=== PATIENT | female | born 1985 | race Caucasian/White ===

== ENCOUNTER 2016-12-13 14:11 | Emergency (ER) | payer MEDICARE, MEDICAID ==
[2016-12-13] MEDS ORDERED: ACETAMINOPHEN 325 MG TABLET PO ONE (15:38)
--- NOTE | 2016-12-13 15:38 | ER Document Report ---
ED Medical Screen (RME) - General Stated Complaint: RIGHT FLANK PAIN,BACK PAIN Notes: patient is a 31 year old female p/w right flank pain that started yesterday and become more severe. h/o kidney stones last in july, urologist was Dr Burrell who moved. urine is dark I have greeted and performed a rapid initial assessment of this patient. A comprehensive ED assessment and evaluation of the patient, analysis of test results and completion of the medical decision making process will be conducted by additional ED providers. TRAVEL OUTSIDE OF THE [place] IN LAST 30 DAYS: No - Related Data Allergies/Adverse Reactions: morphine [Morphine] Allergy (Severe, Verified 10/13/16 21:35) Itching Sulfa (Sulfonamide Antibiotics) Allergy (Severe, Verified 10/13/16 21:35) Rash, Difficulty breathing Past Medical History - Past Medical History Cardiac Medical History: Denies: Hx Coronary Artery Disease, Hx Heart Attack, Hx Hypertension Pulmonary Medical History: Denies: Hx Asthma, Hx Bronchitis, Hx COPD, Hx Pneumonia Neurological Medical History: Reports: Hx Migraine. Denies: Hx Cerebrovascular Accident, Hx Seizures Renal/ Medical History: Reports: Hx Kidney Stones - known stones bilaterally GI Medical History: Reports: Hx Gastroesophageal Reflux Disease, Hx Ulcer Musculoskeltal Medical History: Denies Hx Arthritis Psychiatric Medical History: Reports: Hx Anxiety, Hx Depression Past Surgical History: Reports: Hx Abdominal Surgery - Intestinal, Hx Section - X 3, Hx Cholecystectomy, Hx Genitourinary Surgery - Ureteral stent March 01, 2015, [place]., Hx Hysterectomy - Immunizations Immunizations up to date: Yes Hx Diphtheria, Pertussis, Tetanus Vaccination: No
[2016-12-13 16:41] LABS: ABSOLUTE EOSINOPHILS # (AUTO) 0.1 10^3/uL (0.0-0.6); ABSOLUTE MONOCYTES (AUTO) 0.5 10^3/uL (0.1-1.4); ABSOLUTE NEUT (AUTO) 6.6 10^3/uL (1.7-8.2); BASOPHILS % (AUTO) 0.3 % (0-2); EOSINOPHILS % (AUTO) 0.6 % (0-6); HEMATOCRIT 39.2 % (36.0-47.0); HGB HCT DIFFERENCE -0.2; LYMPHOCYTES % (AUTO) 29.4 % (13-45); MEAN CORPUSCULAR HEMOGLOBIN 26.5 pg (27.0-33.4); MEAN CORPUSCULAR HGB CONC 33.2 g/dL (32.0-36.0); MEAN CORPUSCULAR VOLUME 80 fl (80-97); MONOCYTES % (AUTO) 5.2 % (3-13); RED BLOOD COUNT 4.91 10^6/uL (3.72-5.28); RED CELL DISTRIBUTION WIDTH 15.2 % (11.5-14.0); SEGMENTED NEUTROPHILS % (AUTO) 64.5 % (42-78); WHITE BLOOD COUNT 10.3 10^3/uL (4.0-10.5)
[2016-12-13 16:50] LABS: APPEARANCE,URINE CLOUDY; BILIRUBIN,URINE NEGATIVE (NEGATIVE); GLUCOSE, URINE NEGATIVE (NEGATIVE); KETONES,URINE NEGATIVE (NEGATIVE); LEUKOCYTE ESTERASE,URINE LARGE (NEGATIVE); NITRITE,URINE NEGATIVE (NEGATIVE); PROTEIN,URINE NEGATIVE (NEGATIVE); URINE SPECIFIC GRAVITY 1.011; UROBILINOGEN,URINE NEGATIVE mg/dL (<2.0)
[2016-12-13 17:02] LABS: ALANINE AMINOTRANSFERASE 40 U/L (9-52); ALBUMIN 4.1 g/dL (3.5-5.0); ALKALINE PHOSPHATASE 167 U/L (38-126); ANION GAP 12 (5-19); ASPARTATE AMINO TRANSFERASE 34 U/L (14-36); BILIRUBIN,TOTAL 0.7 mg/dL (0.2-1.3); BLOOD UREA NITROGEN 11 mg/dL (7-20); CALCIUM 9.9 mg/dL (8.4-10.2); CARBON DIOXIDE 27 mmol/L (22-30); CHLORIDE 104 mmol/L (98-107); CREATININE RESULT 1.15 mg/dL (0.52-1.25); GLUCOSE 107 mg/dL (75-110); POTASSIUM 4.9 mmol/L (3.6-5.0); SODIUM 142.5 mmol/L (137-145); TOTAL PROTEIN 8.6 g/dL (6.3-8.2)
--- NOTE | 2016-12-13 19:06 | ER Document Report ---
ED General - General Chief Complaint: Flank Pain Stated Complaint: RIGHT FLANK PAIN,BACK PAIN Mode of Arrival: Ambulatory Information source: Patient Notes: Brandon is a 31-year-old female with history of kidney stones, last was in July. She reports today with 2 day history of right flank pain described as squeezing and tight in her back. She denies fever or chills or vomiting but endorses nausea. She states her urine has been dark but denies any hola hematuria or pyuria. She has tried [id number] pain medication with no relief. She has a urologist that he recently moved and she has not had a referral to anyone new as of yet. TRAVEL OUTSIDE OF THE [place] IN LAST 30 DAYS: No - Related Data Allergies/Adverse Reactions: morphine [Morphine] Allergy (Severe, Verified 10/13/16 21:35) Itching Sulfa (Sulfonamide Antibiotics) Allergy (Severe, Verified 10/13/16 21:35) Rash, Difficulty breathing Past Medical History - Social History Smoking Status: Never Smoker Chew tobacco use (# tins/day): No Frequency of alcohol use: None Drug Abuse: None Family History: Reviewed & Not Pertinent Patient has suicidal ideation: No Patient has homicidal ideation: No - Past Medical History Cardiac Medical History: Denies: Hx Coronary Artery Disease, Hx Heart Attack, Hx Hypertension Pulmonary Medical History: Denies: Hx Asthma, Hx Bronchitis, Hx COPD, Hx Pneumonia Neurological Medical History: Reports: Hx Migraine. Denies: Hx Cerebrovascular Accident, Hx Seizures Renal/ Medical History: Reports: Hx Kidney Stones - known stones bilaterally. Denies: Hx Peritoneal Dialysis GI Medical History: Reports: Hx Gastroesophageal Reflux Disease, Hx Ulcer Musculoskeltal Medical History: Denies Hx Arthritis Psychiatric Medical History: Reports: Hx Anxiety, Hx Depression Past Surgical History: Reports: Hx Abdominal Surgery - Intestinal, Hx Section - X 3, Hx Cholecystectomy, Hx Genitourinary Surgery - Ureteral stent March 01, 2015, [place]., Hx Hysterectomy - Immunizations Immunizations up to date: Yes Hx Diphtheria, Pertussis, Tetanus Vaccination: No Review of Systems - Review of Systems Constitutional: See HPI EENT: No symptoms reported Cardiovascular: No symptoms reported Respiratory: No symptoms reported Gastrointestinal: No symptoms reported Genitourinary: See HPI Female Genitourinary: No symptoms reported Musculoskeletal: No symptoms reported Skin: No symptoms reported Hematologic/Lymphatic: No symptoms reported Neurological/Psychological: No symptoms reported Physical Exam - Vital signs Vitals: Temp Pulse BP Pulse Ox 98.0 F 97 129/94 H 97 12/13/16 15:29 12/13/16 15:29 12/13/16 15:29 12/13/16 15:29 Interpretation: Hypertensive - Notes Notes: PHYSICAL EXAM: CONSTITUTIONAL: Alert and oriented, well-appearing and in no acute distress. Appears uncomfortable but non-toxic. HENT: Normocephalic, atraumatic. Moist mucous membranes. EYES: Pupils equal round and reactive to light, EOM intact. Sclera anicteric, conjunctiva are normal. No entrapment. NECK: supple without lymphadenopathy. ROM intact. HEART: Regular rate and rhythm without murmurs. LUNGS: CTAB and equal. No wheezes, rales or rhonchi. GI: Normactive bowel sounds. Nontender, non-distended. No organomegaly. + R CVAT. BACK: nontender, no paraspinous spasm, 5+/5 strengths, DTRs 2+, SLR -. EXTREMITIES: Normal range of motion, no pitting edema. No cyanosis. Cap Refill < 3 seconds. SKIN: Warm and dry. Normal turgor. No rashes or lesions noted. Course - Re-evaluation Re-evalutation: 12/13/16 20:40 I have consulted with the supervisory physician per [facility] guidelines. Patient seen and examined. R CVAT with normal vital signs. CBC/chem panel unremarkable. UA with small hematuria, large leuk est, 178 WBC, many clumps of WBC and 3+bacteria. Will give IVF/IV pain medication and get CT of A/P w/o contrast. Reviewed imaging results which showed moderate hydronephrosis with 2mm stone at UVJ with mild dilatation just proximal to stone consistent with obstructive uropathy. 12/13/16 21:39 I consulted and discussed case with Dr. Joey Donovan, urologist on-call at [facility]. He recommended obtaining a urine catheter specimen to be sure we had a clean catch and recommended patient be discharged with follow-up outpatient next week. He recommends Cipro/Flomax and something for pain as well. Discussed with patient management and plan who verbally agrees. Discharged home in stable condition with scripts for abx/flomax/pain meds. provided follow-up information for urology outpatient. - Vital Signs Vital signs: Temp Pulse Resp BP Pulse Ox 98.0 F 97 129/94 H 97 12/13/16 15:29 12/13/16 15:29 12/13/16 15:29 12/13/16 15:29 - Laboratory Result Diagrams: 12/13/16 16:25 12/13/16 16:25 Laboratory results interpreted by me: 12/13/16 12/13/16 12/13/16 16:25 16:25 16:25 MCH 26.5 L RDW 15.2 H Est GFR (Non-Af Amer) 55 L Alkaline Phosphatase 167 H Total Protein 8.6 H Urine Blood SMALL H Ur Leukocyte Esterase LARGE H Discharge - Discharge Clinical Impression: Acute unilateral obstructive uropathy, Calculus of proximal right ureter Urinary tract infection Qualifiers: Urinary tract infection type: acute cystitis Hematuria presence: with hematuria Qualified Code(s): N30.01 - Acute cystitis with hematuria Hydronephrosis Qualifiers: Hydronephrosis type: with ureteropelvic junction obstruction Qualified Code(s) : 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 These stones are usually due to increased calcium or uric acid concentrations in your urine. Stones within the kidney itself are not painful. The pain occurs as the stone leaves the kidney to pass down the long tube, called the ureter, leading to the bladder. If the stone is small, it will usually pass by itself. Most patients can pass the stone at home. You will usually receive medications for pain, nausea or vomiting, and sometimes a medication to assist in passing the kidney stone. However, if the pain is very severe or if vomiting prevents you from taking oral pain medications, you may need to return for further treatment. Drink three or four quarts of fluids per day. You will be given pain medication (if needed) and urine strainers. Strain all your urine to see if the stone passes. If your doctor has asked you to bring the stone in for analysis, return with the stone once it has passed. Return if pain or vomiting become severe, if you develop a high fever, if you are unable to pass your urine, or if other unusual symptoms occur. TORADOL INJECTION: You have been given an injection of ketorolac tromethamine (Toradol). This is an excellent, safe drug for pain control. It also has potent antiinflammatory action. You should have significant pain relief within about one hour. Toradol is not addicting and is non-sedating. It does not interfere with driving or work. Call or return if you develop itching, hives, shortness of breath, or rash. PAIN MEDICATION INJECTION: You have received an injection of a pain medication. You should experience significant pain relief within 45 minutes. This drug is a narcotic - - it will impair your judgement, slow your reaction time and make you sleepy ( as well as relieve your pain). Narcotics also can cause nausea. You should not drive, work with machinery, or perform any task requiring mental alertness until all effects of the medication are gone -- six to eight hours. Do not take any alcohol, or sedatives, and do not take any other medication without checking with your physician. ANTINAUSEA MEDICATION: You have been given a medication to suppress nausea and vomiting. This type of medication can be given as a shot, pill, or suppository. It will usually last for many hours. Pills and shots usually last six to eight hours, suppositories last about 12 hours. For the typical illness, only one or two doses of the medication may be necessary. Mild lightheadedness may occur. This type of medicine can cause drowsiness. Do not drive or operate dangerous machinery while under its influence. Do not mix with alcohol. See your doctor at once if you have muscle spasms or tightness, or uncontrollable motions (particularly of the neck, mouth, or jaw). Persistent vomiting or severe lightheadedness should also be evaluated by the physician. ORAL NARCOTIC MEDICATION: You have been given a prescription for pain control. This medication is a narcotic. It's best taken with food, as nausea can result if taken on an empty stomach. Don't operate machinery or drive within six hours of taking this medication. Do not combine this medicine with alcohol, or with any medication which can cause sedation (such as cold tablets or sleeping pills) unless you get permission from the physician. Narcotics tend to cause constipation. If possible, drink plenty of fluids and eat a diet high in fiber and fruits. Please be aware that prescription narcotics also have the potential for abuse. People become addicted to these medications because of the general sense of wellbeing that they induce. This feeling along with a significant reduction in tension, anxiety, and aggression provides a stimulating seductive quality to these drugs. Once your pain is under control, we encourage you to discard your unused narcotics. FLOMAX (tamsulosin): Flomax is a medicine that shrinks the prostate gland. It helps relieve symptoms of benign prostatic hypertrophy, such as frequent urination, weak stream, and inadequate emptying. It has been shown to dilate the ureter (tube leading from the kidney to the bladder) and help in passing kidney stones Flomax usually causes no side effects. You may notice slight tiredness and dizziness for a few days. Some patients develop nasal congestion. Rarely, impotence can occur. If the symptoms are bothersome and don't improve with continued use, call your doctor. Contact your doctor or return if you have fainting spells, severe weakness or dizziness, shortness of breath, or rash. FOLLOW-UP CARE: If you have been referred to a physician for follow-up care, call the physician s office for an appointment as you were instructed or within the next two days. If you experience worsening or a significant change in your symptoms, notify the physician immediately or return to the Emergency Department at any time for re-evaluation. Prescriptions: Oxycodone HCl/Acetaminophen [Percocet 5-325 mg Tablet] 1 tab PO Q6HP PRN #10 tablet PRN Reason: Ciprofloxacin HCl [Cipro 500 mg Tablet] 500 mg PO BID #20 tablet Ondansetron [Zofran Odt 4 mg Tablet] 1 - 2 tab PO Q4H PRN #15 tab.rapdis PRN Reason: For Nausea/Vomiting Tamsulosin HCl [Flomax 0.4 mg Cap.sr] 0.4 mg PO DAILY #7 cap.sr.24h Forms: Elevated Blood Pressure Referrals: JOEY DONOVAN MD [NO LOCAL MD] - Follow up in 1 week (call tomorrow to schedule appointment for next week)
[2016-12-13] MEDS ORDERED: NORMAL SALINE 1000 ML 1,000 ML IV ONE (20:06)
[2016-12-13] MEDS ORDERED: KETOROLAC TROMETHAMINE INJ/PF 30 MG/1 ML SDV IV ONE (21:37)
[2016-12-13 22:03] VITALS: BP 107/53
[2016-12-13] MEDS ORDERED: HYDROCODONE/ACETAMINOPHEN 5-325 MG 6 TAB/DSPK PO PRN (22:03)
[2016-12-13 22:54] LABS: APPEARANCE,URINE CLEAR; BILIRUBIN,URINE NEGATIVE (NEGATIVE); GLUCOSE, URINE NEGATIVE (NEGATIVE); KETONES,URINE NEGATIVE (NEGATIVE); PROTEIN,URINE NEGATIVE (NEGATIVE); URINE SPECIFIC GRAVITY 1.016
[2016-12-13 22:55] LABS: LEUKOCYTE ESTERASE,URINE LARGE (NEGATIVE); NITRITE,URINE NEGATIVE (NEGATIVE); UROBILINOGEN,URINE NEGATIVE mg/dL (<2.0)
== END 2016-12-13 22:14 | disposition home or self-care (01) ==
LOC: ER 14:11
DX: N13.2 Hydronephrosis with renal and ureteral calculous obstruction (principal); N30.01 Acute cystitis with hematuria; Q62.0 Congenital hydronephrosis; Z88.5 Allergy status to narcotic agent; Z88.2 Allergy status to sulfonamides; Z98.890 Other specified postprocedural states
CPT/HCPCS: 99284; 96361; 96374; 36415; 85025; 80053; 81001; 74176; A9270 ×2; J1885; J7030

== ENCOUNTER 2017-01-03 18:32 | Emergency (ER) | payer MEDICARE, MEDICAID ==
--- NOTE | 2017-01-03 19:02 | ER Document Report ---
ED Medical Screen (RME) - General Stated Complaint: FLANK PAIN Notes: History is a 31-year-old female presents emergency Department complaining of kidney stone bilaterally, fever, abdominal pain and back pain. Patient states that she's had these symptoms since her last evaluation here but it has become more severe. Denies any nausea or vomiting. Denies any hematuria, states that she has pain on urination that it's difficult to go for one week. I have greeted and performed a rapid initial assessment of this patient. A comprehensive ED assessment and evaluation of the patient, analysis of test results and completion of the medical decision making process will be conducted by additional ED providers. TRAVEL OUTSIDE OF THE [place] IN LAST 30 DAYS: No - Related Data Allergies/Adverse Reactions: morphine [Morphine] Allergy (Severe, Verified 10/13/16 21:35) Itching Sulfa (Sulfonamide Antibiotics) Allergy (Severe, Verified 10/13/16 21:35) Rash, Difficulty breathing Past Medical History - Past Medical History Cardiac Medical History: Denies: Hx Coronary Artery Disease, Hx Heart Attack, Hx Hypertension Pulmonary Medical History: Denies: Hx Asthma, Hx Bronchitis, Hx COPD, Hx Pneumonia Neurological Medical History: Reports: Hx Migraine. Denies: Hx Cerebrovascular Accident, Hx Seizures Renal/ Medical History: Reports: Hx Kidney Stones - known stones bilaterally. Denies: Hx Peritoneal Dialysis GI Medical History: Reports: Hx Gastroesophageal Reflux Disease, Hx Ulcer Musculoskeltal Medical History: Denies Hx Arthritis Psychiatric Medical History: Reports: Hx Anxiety, Hx Depression Past Surgical History: Reports: Hx Abdominal Surgery - Intestinal, Hx Section - X 3, Hx Cholecystectomy, Hx Genitourinary Surgery - Ureteral stent March 01, 2015, [place]., Hx Hysterectomy - Immunizations Immunizations up to date: Yes Hx Diphtheria, Pertussis, Tetanus Vaccination: No Physical Exam - Vital signs Vitals: Temp Pulse Resp BP Pulse Ox 98.4 F 109 H 20 135/93 H 99 01/03/17 18:56 01/03/17 18:56 01/03/17 18:56 01/03/17 18:56 01/03/17 18:56 Course - Vital Signs Vital signs: Temp Pulse Resp BP Pulse Ox 98.4 F 109 H 20 135/93 H 99 01/03/17 18:56 01/03/17 18:56 01/03/17 18:56 01/03/17 18:56 01/03/17 18:56
[2017-01-03] MEDS ORDERED: ACETAMINOPHEN 325 MG TABLET PO ONE (19:03)
[2017-01-03 19:34] LABS: ABSOLUTE EOSINOPHILS # (AUTO) 0.1 10^3/uL (0.0-0.6); ABSOLUTE LYMPHOCYTES (AUTO) 2.4 10^3/uL (0.5-4.7); ABSOLUTE MONOCYTES (AUTO) 0.5 10^3/uL (0.1-1.4); ABSOLUTE NEUT (AUTO) 6.4 10^3/uL (1.7-8.2); BASOPHILS % (AUTO) 0.3 % (0-2); EOSINOPHILS % (AUTO) 0.6 % (0-6); HEMATOCRIT 40.3 % (36.0-47.0); HEMOGLOBIN 13.7 g/dL (12.0-15.5); HGB HCT DIFFERENCE 0.8; MEAN CORPUSCULAR HEMOGLOBIN 26.9 pg (27.0-33.4); MEAN CORPUSCULAR HGB CONC 34.1 g/dL (32.0-36.0); MEAN CORPUSCULAR VOLUME 79 fl (80-97); RED BLOOD COUNT 5.11 10^6/uL (3.72-5.28); RED CELL DISTRIBUTION WIDTH 15.2 % (11.5-14.0); SEGMENTED NEUTROPHILS % (AUTO) 68.1 % (42-78); WHITE BLOOD COUNT 9.4 10^3/uL (4.0-10.5)
[2017-01-03 19:42] LABS: APPEARANCE,URINE SLIGHTLY-CLOUDY; BILIRUBIN,URINE NEGATIVE (NEGATIVE); GLUCOSE, URINE NEGATIVE (NEGATIVE); KETONES,URINE NEGATIVE (NEGATIVE); LEUKOCYTE ESTERASE,URINE MODERATE (NEGATIVE); NITRITE,URINE NEGATIVE (NEGATIVE); PROTEIN,URINE NEGATIVE (NEGATIVE); URINE SPECIFIC GRAVITY 1.013; UROBILINOGEN,URINE NEGATIVE mg/dL (<2.0)
[2017-01-03 20:05] LABS: ALANINE AMINOTRANSFERASE 34 U/L (9-52); ALBUMIN 4.7 g/dL (3.5-5.0); ALKALINE PHOSPHATASE 157 U/L (38-126); ANION GAP 15 (5-19); ASPARTATE AMINO TRANSFERASE 23 U/L (14-36); BILIRUBIN,TOTAL 0.7 mg/dL (0.2-1.3); BLOOD UREA NITROGEN 15 mg/dL (7-20); CALCIUM 10.2 mg/dL (8.4-10.2); CARBON DIOXIDE 25 mmol/L (22-30); CHLORIDE 104 mmol/L (98-107); CREATININE RESULT 0.93 mg/dL (0.52-1.25); GLUCOSE 139 mg/dL (75-110); POTASSIUM 4.4 mmol/L (3.6-5.0); TOTAL PROTEIN 8.9 g/dL (6.3-8.2)
[2017-01-03] MEDS ORDERED: OXYCODONE HCL IR 5 MG TABLET PO ONE (20:41)
[2017-01-03] MEDS ORDERED: ONDANSETRON 4 MG TAB.RAPDIS PO ONE (20:41)
--- NOTE | 2017-01-03 20:48 | ER Document Report ---
ED GI/ - General Chief Complaint: Flank Pain Stated Complaint: FLANK PAIN Notes: Patient is a 31-year-old female that comes to the ED for chief complaint of pain in her lower abdomen and flank on both sides, she states she was evaluated a month ago and had a stone that she was passing, states she saw her urologist on Saturday and she was still having intermittent pain but was doing better, states she completed Cipro antibiotic. She states yesterday she was sweating and she states she felt "hot" once, but no fevers noted. She denies nausea or vomiting. Patient is now seeing urologist Dr. Kasper. Patient has had a hysterectomy. TRAVEL OUTSIDE OF THE [place] IN LAST 30 DAYS: No - Related Data Allergies/Adverse Reactions: morphine [Morphine] Allergy (Severe, Verified 10/13/16 21:35) Itching Sulfa (Sulfonamide Antibiotics) Allergy (Severe, Verified 10/13/16 21:35) Rash, Difficulty breathing Past Medical History - General Information source: Patient - Social History Smoking Status: Never Smoker Chew tobacco use (# tins/day): No Frequency of alcohol use: None Drug Abuse: None Lives with: Family Family History: Reviewed & Not Pertinent Patient has suicidal ideation: No Patient has homicidal ideation: No - Past Medical History Cardiac Medical History: Denies: Hx Coronary Artery Disease, Hx Heart Attack, Hx Hypertension Pulmonary Medical History: Denies: Hx Asthma, Hx Bronchitis, Hx COPD, Hx Pneumonia Neurological Medical History: Reports: Hx Migraine. Denies: Hx Cerebrovascular Accident, Hx Seizures Renal/ Medical History: Reports: Hx Kidney Stones - known stones bilaterally. Denies: Hx Peritoneal Dialysis GI Medical History: Reports: Hx Gastroesophageal Reflux Disease, Hx Ulcer Musculoskeltal Medical History: Denies Hx Arthritis Psychiatric Medical History: Reports: Hx Anxiety, Hx Depression Past Surgical History: Reports: Hx Abdominal Surgery - Intestinal, Hx Section - X 3, Hx Cholecystectomy, Hx Genitourinary Surgery - Ureteral stent March 01, 2015, [place]., Hx Hysterectomy - Immunizations Immunizations up to date: Yes Hx Diphtheria, Pertussis, Tetanus Vaccination: No Review of Systems - Review of Systems Constitutional: No symptoms reported EENT: No symptoms reported Cardiovascular: No symptoms reported Respiratory: No symptoms reported Gastrointestinal: See HPI Genitourinary: See HPI Female Genitourinary: No symptoms reported Musculoskeletal: No symptoms reported Skin: No symptoms reported Hematologic/Lymphatic: No symptoms reported Neurological/Psychological: No symptoms reported Physical Exam - Vital signs Vitals: Temp Pulse Resp BP Pulse Ox 98.4 F 109 H 20 135/93 H 99 01/03/17 18:56 01/03/17 18:56 01/03/17 18:56 01/03/17 18:56 01/03/17 18:56 Interpretation: Normal - General General appearance: Appears well, Alert In distress: None - Alert and well-appearing - HEENT Head: Normocephalic, Atraumatic Eyes: Normal Pupils: PERRL - Respiratory Respiratory status: No respiratory distress Chest status: Nontender Breath sounds: Normal Chest palpation: Normal - Cardiovascular Rhythm: Regular. No: Tachycardia - No tachycardia on my examination Heart sounds: Normal auscultation, S1 appreciated, S2 appreciated Murmur: No - Abdominal Inspection: Normal Distension: No distension Bowel sounds: Normal Tenderness: Tender - Very mild generalized mid to lower abdominal tenderness, nonspecific, no guarding Organomegaly: No organomegaly - Back Back: Normal, Nontender. No: Tender, CVA tenderness - Extremities General upper extremity: Normal inspection, Nontender, Normal color, Normal ROM , Normal temperature General lower extremity: Normal inspection, Nontender, Normal color, Normal ROM , Normal temperature, Normal weight bearing. No: Mary's sign - Neurological Neuro grossly intact: Yes Cognition: Normal Orientation: AAOx4 [place] Coma Scale Eye Opening: Spontaneous [place] Coma Scale Verbal: Oriented [place] Coma Scale Motor: Obeys Commands [place] Coma Scale Total: 15 Speech: Normal Cranial nerves: Normal Cerebellar coordination: Normal Motor strength normal: LUE, RUE, LLE, RLE Additional motor exam normals: Equal art specialist Sensory: Normal - Psychological Associated symptoms: Normal affect, Normal mood - Skin Skin Temperature: Warm Skin Moisture: Dry Skin Color: Normal Course - Re-evaluation Re-evalutation: Patient with very mild generalized abdominal tenderness on exam, no guarding, no CVA tenderness on my examination, no fever. No leukocytosis, chemistry unremarkable. Urinalysis shows moderate leukocyte esterase, white blood cells, 3+ bacteria. Urine culture sent. Patient given antibiotics, symptom management. Ultrasound with no acute abnormalities, no hydronephrosis. No evidence of obstructive pathology. Patient is very well-appearing. Discussed with Dr. Mcgregor per [facility] guidelines. Patient states that she was supposed to follow- up for an ultrasound tomorrow with her urologist, has result patient was given her labs and her ultrasound, advised to call her urologist in the morning, instructed to return if she develops fever, vomiting, or worsening symptoms. Patient states satisfaction and agreement with plan. - Vital Signs Vital signs: Temp Pulse Resp BP Pulse Ox 98.6 F 84 16 129/71 H 96 01/03/17 23:14 01/03/17 23:14 01/03/17 23:14 01/03/17 23:14 01/03/17 23:14 - Laboratory Result Diagrams: 01/03/17 19:10 01/03/17 19:10 Laboratory results interpreted by me: 01/03/17 01/03/17 01/03/17 19:10 19:10 19:15 MCV 79 L MCH 26.9 L RDW 15.2 H Glucose 139 H Alkaline Phosphatase 157 H Total Protein 8.9 H Ur Leukocyte Esterase MODERATE H Discharge - Discharge Clinical Impression: Lower abdominal pain Condition: Stable Disposition: HOME, SELF-CARE Additional Instructions: The ultrasound is normal, blood work does not show any concerning findings, the urine is consistent with an infection. Have a culture of your urine growing in our lab, please take the antibiotic as directed, follow up tomorrow with your urologist and breathing the labs and ultrasound report to his office on your appointment. Return to the emergency department for any concerning or worsening symptoms including vomiting, severe pain, fever, etc. Prescriptions: Cephalexin Monohydrate [Keflex 500 mg Capsule] 500 mg PO BID #14 capsule
[2017-01-03] MEDS ORDERED: HYDROCODONE/ACETAMINOPHEN 5-325 MG 6 TAB/DSPK PO PRN (22:47)
[2017-01-03] MEDS ORDERED: CEPHALEXIN 500 MG CAPSULE PO ONE (22:47)
[2017-01-03 23:14] VITALS: BP 129/71
== END 2017-01-03 23:14 | disposition home or self-care (01) ==
LOC: ER 18:32
DX: R10.30 Lower abdominal pain, unspecified (principal)
CPT/HCPCS: 99284; 36415; 87086; 85025; 87088; 80053; 81001; 87186; 76770; A9270 ×4; S0119

== ENCOUNTER 2017-01-10 00:12 | Emergency (ER) | payer MEDICARE, MEDICAID ==
[2017-01-10 01:28] LABS: ALANINE AMINOTRANSFERASE 62 U/L (9-52); ALBUMIN 4.4 g/dL (3.5-5.0); ALKALINE PHOSPHATASE 183 U/L (38-126); ANION GAP 18 (5-19); ASPARTATE AMINO TRANSFERASE 89 U/L (14-36); BLOOD UREA NITROGEN 15 mg/dL (7-20); CALCIUM 9.8 mg/dL (8.4-10.2); CARBON DIOXIDE 19 mmol/L (22-30); CHLORIDE 107 mmol/L (98-107); CREATININE RESULT 1.03 mg/dL (0.52-1.25); GLUCOSE 141 mg/dL (75-110)
[2017-01-10 02:59] LABS: HEMATOCRIT 41.8 % (36.0-47.0); HGB HCT DIFFERENCE 0.2; MEAN CORPUSCULAR HEMOGLOBIN 26.9 pg (27.0-33.4); MEAN CORPUSCULAR HGB CONC 33.5 g/dL (32.0-36.0); MEAN CORPUSCULAR VOLUME 80 fl (80-97); WHITE BLOOD COUNT 17.1 10^3/uL (4.0-10.5)
[2017-01-10 03:27] LABS: BAND NEUTROPHILS % (MANUAL) 7 % (3-5); BASOPHILS % (MANUAL) 0 % (0-2); EOSINOPHILS % (MANUAL) 0 % (0-6); LYMPHOCYTES % (MANUAL) 4 % (13-45); TOTAL CELLS COUNTED 100
[2017-01-10 03:28] LABS: ANISOCYTOSIS SLIGHT; HYPOCHROMASIA SLIGHT; OVALOCYTES SLIGHT; POIKILOCYTOSIS SLIGHT; SCHISTOCYTES SLIGHT; TOXIC GRANULATION SLIGHT
[2017-01-10] MEDS ORDERED: NORMAL SALINE 1000 ML 1,000 ML IV ONE (04:11)
[2017-01-10] MEDS ORDERED: FAMOTIDINE 20 MG TABLET PO ONE (04:16)
[2017-01-10] MEDS ORDERED: METOCLOPRAMIDE HCL INJ/PF 10 MG/2 ML SDV IV ONE (04:16)
[2017-01-10] MEDS ORDERED: SUCRALFATE 1 GM TABLET PO ONE (04:18)
[2017-01-10] MEDS ORDERED: LORAZEPAM INJ 2 MG/1 ML VIAL IV ONE (05:05)
[2017-01-10 05:39] LABS: APPEARANCE,URINE CLOUDY; BILIRUBIN,URINE SMALL (NEGATIVE); CALCIUM OXALATE CRYSTALS,URINE TOO NUMEROUS TO CNT /HPF; GLUCOSE, URINE NEGATIVE (NEGATIVE); KETONES,URINE TRACE mg/dL (NEGATIVE); LEUKOCYTE ESTERASE,URINE SMALL (NEGATIVE); NITRITE,URINE NEGATIVE (NEGATIVE); PROTEIN,URINE 30 mg/dL (NEGATIVE); URINE SPECIFIC GRAVITY 1.036
[2017-01-10] MEDS ORDERED: AMPICILLIN SOD INJ 1 GM VIAL IV ONE (05:56)
--- NOTE | 2017-01-10 06:10 | ER Document Report ---
ED General - General Chief Complaint: Nausea/Vomiting/Diarrhea Stated Complaint: VOMITING Time seen by provider: 03:28 Mode of Arrival: Ambulatory Information source: Patient TRAVEL OUTSIDE OF THE [place] IN LAST 30 DAYS: No - HPI Notes: Patient presents with report of vomiting and diarrhea which started yesterday evening associated with upper abdominal pain that radiates into the lower chest. No hematemesis or bright red blood per rectum. The patient recently was diagnosed with a UTI grew enterococcus that was responsive to ampicillin and penicillin, but the patient was placed upon Keflex. Patient denies any back pain. She does report her urine is dark. - Related Data Allergies/Adverse Reactions: morphine [Morphine] Allergy (Severe, Verified 10/13/16 21:35) Itching Sulfa (Sulfonamide Antibiotics) Allergy (Severe, Verified 10/13/16 21:35) Rash, Difficulty breathing Past Medical History - Social History Smoking Status: Never Smoker Family History: Reviewed & Not Pertinent Patient has suicidal ideation: No Patient has homicidal ideation: No - Past Medical History Cardiac Medical History: Denies: Hx Coronary Artery Disease, Hx Heart Attack, Hx Hypertension Pulmonary Medical History: Denies: Hx Asthma, Hx Bronchitis, Hx COPD, Hx Pneumonia Neurological Medical History: Reports: Hx Migraine. Denies: Hx Cerebrovascular Accident, Hx Seizures Renal/ Medical History: Reports: Hx Kidney Stones - known stones bilaterally. Denies: Hx Peritoneal Dialysis GI Medical History: Reports: Hx Gastroesophageal Reflux Disease, Hx Ulcer Musculoskeltal Medical History: Denies Hx Arthritis Psychiatric Medical History: Reports: Hx Anxiety, Hx Depression Past Surgical History: Reports: Hx Abdominal Surgery - Intestinal, Hx Section - X 3, Hx Cholecystectomy, Hx Genitourinary Surgery - Ureteral stent March 01, 2015, [place]., Hx Hysterectomy - Immunizations Immunizations up to date: Yes Hx Diphtheria, Pertussis, Tetanus Vaccination: No Review of Systems - Review of Systems Notes: REVIEW OF SYSTEMS: CONSTITUTIONAL : Denies fever, chills, or sweats. Denies recent illness. EENT: Denies eye, ear, throat, or mouth pain or symptoms. Denies nasal or sinus congestion or discharge. Denies throat, tongue, or mouth swelling or difficulty swallowing. CARDIOVASCULAR: Denies palpitations or racing or irregular heart beat. Denies ankle edema. RESPIRATORY: Denies cough, cold, or chest congestion. Denies shortness of breath, difficulty breathing, or wheezing. GASTROINTESTINAL: Denies blood in vomitus, stools, or per rectum. Denies black, tarry stools. Denies constipation. GENITOURINARY: Denies difficulty urinating, painful urination, burning, frequency, blood in urine, or discharge. FEMALE GENITOURINARY: Denies vaginal bleeding, heavy or abnormal periods, irregular periods. Denies vaginal discharge or odor. MUSCULOSKELETAL: Denies back or neck pain or stiffness. Denies joint pain or swelling. SKIN: Denies rash, lesions or sores. HEMATOLOGIC : Denies easy bruising or bleeding. LYMPHATIC: Denies swollen, enlarged glands. NEUROLOGICAL: Denies confusion or altered mental status. Denies passing out or loss of consciousness. Mildly dizzy and lightheaded. Denies headache. Denies paralysis or loss of use of either side. Denies problems with gait or speech. Denies sensory loss, numbness, or tingling. Denies seizures. PSYCHIATRIC: Denies anxiety or stress. Denies depression, suicidal ideation, or homicidal ideation. ALL OTHER SYSTEMS REVIEWED AND NEGATIVE. Dictation was performed using [employer] voice recognition software Physical Exam - Vital signs Vitals: Temp Pulse BP Pulse Ox 97.3 F 126 H 114/69 98 01/10/17 00:28 01/10/17 00:28 01/10/17 00:28 01/10/17 00:28 - Notes Notes: PHYSICAL EXAMINATION: GENERAL: Well-appearing, well-nourished and in no acute distress. HEAD: Atraumatic, normocephalic. EYES: Pupils equal round and reactive to light, extraocular movements intact, conjunctiva are normal. ENT: Nares patent, oropharynx clear without exudates. Dry mucous membranes NECK: Normal range of motion, supple without lymphadenopathy LUNGS: Breath sounds clear to auscultation bilaterally and equal. No wheezes rales or rhonchi. HEART: Regular rate and rhythm without murmurs ABDOMEN: Tenderness in the midepigastric region. No hepatosplenomegaly. No guarding, no rebound. No masses appreciated. Female : deferred Musculoskeletal: Normal range of motion, no pitting or edema. No cyanosis. NEUROLOGICAL: Cranial nerves grossly intact. Normal speech, normal gait. Normal sensory, motor exams PSYCH: Normal mood, normal affect. SKIN: Warm, Dry, normal turgor, no rashes or lesions noted. Course - Re-evaluation Re-evalutation: 01/10/17 06:32 Patient was given medications for nausea and acid blockers and Ativan with 2 L normal saline bolus. On repeat exam patient had no abdominal pain and denied any chest pain and stated she felt stable for discharge. Patient tolerated by mouth fluids without difficulty. She denied further nausea. No evidence for bowel obstruction or perforated viscus or pancreatitis or hepatitis or electrolyte imbalance or anemia. Patient was given ampicillin IV for UTI, and a repeat culture was obtained. Patient requested discharge home and she was feeling better. - Vital Signs Vital signs: Temp Pulse Resp BP Pulse Ox 97.3 F 114 H 91/55 L 100 01/10/17 00:28 01/10/17 01:03 01/10/17 01:03 01/10/17 01:03 - Laboratory Result Diagrams: 01/10/17 02:30 01/10/17 01:01 Laboratory results interpreted by me: 01/10/17 01/10/17 01/10/17 01:01 02:30 04:05 WBC 17.1 H MCH 26.9 L RDW 15.0 H Seg Neuts % (Manual) 81 H Band Neutrophils % 7 H Lymphocytes % (Manual) 4 L Abs Neuts (Manual) 15.0 H Carbon Dioxide 19 L Glucose 141 H AST 89 H ALT 62 H Alkaline Phosphatase 183 H Total Protein 9.0 H Urine Protein 30 H Urine Ketones TRACE H Urine Bilirubin SMALL H Urine Urobilinogen 4.0 H Ur Leukocyte Esterase SMALL H Discharge - Discharge Clinical Impression: Diarrhea Urinary tract infection Qualifiers: Urinary tract infection type: acute cystitis Hematuria presence: with hematuria Qualified Code(s): N30.01 - Acute cystitis with hematuria Vomiting Qualifiers: Vomiting type: unspecified Vomiting Intractability: non-intractable Nausea presence: with nausea Qualified Code(s): R11.2 - Nausea with vomiting, unspecified Abdominal pain Qualifiers: Abdominal location: unspecified location Qualified Code(s): R10.9 - Unspecified abdominal pain Condition: Stable Disposition: HOME, SELF-CARE Instructions: Abdominal Pain ([facility]), Antinausea Medication ([facility]), Diarrhea, Nonspecific ([facility]), Intravenous (IV) Fluids ([facility]), Urinary Tract Infection ([facility]) Prescriptions: Lorazepam [Ativan 1 mg Tablet] 1 mg PO Q8HP PRN #20 tablet PRN Reason: Ondansetron [Zofran Odt 4 mg Tablet] 1 tab PO Q8HP PRN #15 tab.rapdis PRN Reason: For Nausea/Vomiting Amoxicillin 500 mg PO QIDWA #30 capsule Ranitidine HCl 150 mg PO BID #60 tablet
[2017-01-10 07:04] VITALS: BP 101/69
== END 2017-01-10 07:04 | disposition home or self-care (01) ==
LOC: ER 00:12
DX: N30.01 Acute cystitis with hematuria (principal); R19.7 Diarrhea, unspecified; R11.2 Nausea with vomiting, unspecified; R10.10 Upper abdominal pain, unspecified; Z88.6 Allergy status to analgesic agent; Z88.2 Allergy status to sulfonamides; Z87.442 Personal history of urinary calculi; Z90.49 Acquired absence of other specified parts of digestive tract; Z90.710 Acquired absence of both cervix and uterus
CPT/HCPCS: 99283; 96374; 96375; 36415; 87086; 83690; 85025; 87088; 80053; 81001; 87186; 74022; J0290; A9270 ×2; J2765; J2060

== ENCOUNTER 2017-02-09 16:19 | Emergency (ER) | payer MEDICARE, MEDICAID ==
--- NOTE | 2017-02-09 16:31 | ER Document Report ---
ED General - General Information source: Patient TRAVEL OUTSIDE OF THE [place] IN LAST 30 DAYS: No - HPI Onset: This morning Onset/Duration: Sudden Associated symptoms: Nausea Similar symptoms previously: Yes <SAMANTHA HUGO - Last Filed: 02/09/17 20:02> <KAUR CURRY - Last Filed: 02/09/17 23:26> - General Stated Complaint: BACK PAIN Notes: Patient is a 31-year-old female that presents to the emergency department today with complaints of right upper quadrant abdominal pain beginning this morning around 1100 after breakfast. Patient had a cholecystectomy in 2003. Patient states the pain radiates to her back and she describes colicky pain, stating it comes and goes every 5 minutes. Patient states her pain is relieved with placing a hot pack over the Patient states she has been nauseated but denies any vomiting, diarrhea, fevers, cough, or urinary symptoms. (SAMANTHA HUGO) - Related Data Allergies/Adverse Reactions: morphine [Morphine] Allergy (Severe, Verified 10/13/16 21:35) Itching Sulfa (Sulfonamide Antibiotics) Allergy (Severe, Verified 10/13/16 21:35) Rash, Difficulty breathing Past Medical History - General Information source: Patient, [facility] Records - Social History Smoking Status: Never Smoker Cigarette use (# per day): No Frequency of alcohol use: None Drug Abuse: None Lives with: Family Family History: Reviewed & Not Pertinent Neurological Medical History: Reports: Hx Migraine Renal/ Medical History: Reports: Hx Kidney Stones - known stones bilaterally GI Medical History: Reports: Hx Gastroesophageal Reflux Disease, Hx Ulcer Psychiatric Medical History: Reports: Hx Anxiety, Hx Depression Past Surgical History: Reports: Hx Abdominal Surgery - Intestinal, Hx Section - X 3, Hx Cholecystectomy, Hx Genitourinary Surgery - Ureteral stent March 01, 2015, [place]., Hx Hysterectomy - Immunizations Immunizations up to date: Yes Hx Diphtheria, Pertussis, Tetanus Vaccination: No <SAMANTHA HUGO - Last Filed: 02/09/17 20:02> Review of Systems - Review of Systems Constitutional: denies: Fever EENT: No symptoms reported Cardiovascular: No symptoms reported Respiratory: denies: Cough Gastrointestinal: See HPI, Abdominal pain - RUQ, Nausea. denies: Diarrhea, Vomiting Genitourinary: denies: Dysuria Female Genitourinary: No symptoms reported Musculoskeletal: No symptoms reported Skin: No symptoms reported Hematologic/Lymphatic: No symptoms reported Neurological/Psychological: No symptoms reported -: Yes All other systems reviewed and negative <SAMANTHA HUGO - Last Filed: 02/09/17 20:02> Physical Exam - Vital signs Interpretation: Tachycardic - General General appearance: Other - unconfortable appearing In distress: None - Respiratory Respiratory status: No respiratory distress Chest status: Nontender Breath sounds: Normal - Cardiovascular Rhythm: Regular - Abdominal Inspection: Normal Tenderness: Tender - mild RUQ TTP - Back Back: CVA tenderness - R - Extremities General upper extremity: Normal inspection, Normal ROM, Normal strength General lower extremity: Normal inspection, Normal ROM, Normal strength - Neurological Neuro grossly intact: Yes Cognition: Normal Orientation: AAOx4 [place] Coma Scale Eye Opening: Spontaneous Meri Coma Scale Verbal: Oriented [place] Coma Scale Motor: Obeys Commands Meri Coma Scale Total: 15 Speech: Normal Cranial nerves: Normal Cerebellar coordination: Normal <KAUR CURRY - Last Filed: 02/09/17 23:26> - Vital signs Vitals: Resp BP Pulse Ox 23 H 115/82 98 02/09/17 16:35 02/09/17 16:35 02/09/17 16:35 Course - Laboratory Result Diagrams: 02/09/17 16:36 02/09/17 16:36 <SAMANTHA HUGO - Last Filed: 02/09/17 20:02> - Laboratory Result Diagrams: 02/09/17 16:36 02/09/17 16:36 <KAUR CURRY - Last Filed: 02/09/17 23:26> - Re-evaluation Re-evalutation: 02/09/17 19:49 Patient's symptoms consistent with UTI/pyelonephritis. Will cultures reviewed and has been responsive to penicillin the past. Patient will be given antibiotics and discharged home with Augmentin. Patient feels better at this time and agrees with this plan. Dates that she would like something for anxiety at home. She'll be given Vistaril. Follow-up with PMD. Return if any worsening or concerning symptoms. (KAUR CURRY) - Vital Signs Vital signs: Temp Pulse Resp BP Pulse Ox 97.8 F 117 H 16 126/77 H 95 02/09/17 20:43 02/09/17 20:43 02/09/17 20:43 02/09/17 20:43 02/09/17 20:43 - Laboratory Laboratory results interpreted by me: 02/09/17 02/09/17 02/09/17 16:36 16:36 16:36 WBC 13.1 H MCV 79 L RDW 15.1 H Absolute Neutrophils 9.9 H Glucose 127 H Direct Bilirubin 0.5 H AST 37 H Alkaline Phosphatase 186 H Total Protein 9.1 H Ur Leukocyte Esterase 02/09/17 16:45 WBC MCV RDW Absolute Neutrophils Glucose Direct Bilirubin AST Alkaline Phosphatase Total Protein Ur Leukocyte Esterase MODERATE H Discharge <SAMANTHA HUGO - Last Filed: 02/09/17 20:02> <KAUR CURRY - Last Filed: 02/09/17 23:26> - Discharge Clinical Impression: Urinary tract infection Qualifiers: Urinary tract infection type: acute cystitis Hematuria presence: with hematuria Qualified Code(s): N30.01 - Acute cystitis with hematuria Condition: Stable Disposition: HOME, SELF-CARE Instructions: Urinary Tract Infection ([facility]) Prescriptions: Amox Tr/Potassium Clavulanate [Augmentin 875-125 mg Tablet] 1 tab PO BID #20 tablet Hydroxyzine Pamoate [Vistaril 25 mg Capsule] 25 mg PO BIDP PRN #14 capsule PRN Reason: Scribe Attestation: 02/09/17 23:25 I personally performed the services described in the documentation, reviewed and edited the documentation which was dictated to the scribe in my presence, and it accurately records my words and actions. (KAUR CURRY) Scribe Documentation - Scribe Written by Scribe:: Little Vazquez, 02/09/2017 1737 acting as scribe for :: [place] <SAMANTHA HUGO - Last Filed: 02/09/17 20:02>
[2017-02-09 16:58] LABS: ABSOLUTE BASOPHILS # (AUTO) 0.1 10^3/uL (0.0-0.2); ABSOLUTE EOSINOPHILS # (AUTO) 0.1 10^3/uL (0.0-0.6); ABSOLUTE LYMPHOCYTES (AUTO) 2.4 10^3/uL (0.5-4.7); ABSOLUTE MONOCYTES (AUTO) 0.7 10^3/uL (0.1-1.4); ABSOLUTE NEUT (AUTO) 9.9 10^3/uL (1.7-8.2); BASOPHILS % (AUTO) 0.6 % (0-2); EOSINOPHILS % (AUTO) 0.5 % (0-6); HEMATOCRIT 36.3 % (36.0-47.0); HEMOGLOBIN 12.5 g/dL (12.0-15.5); HGB HCT DIFFERENCE 1.2; LYMPHOCYTES % (AUTO) 18.4 % (13-45); MEAN CORPUSCULAR HEMOGLOBIN 27.1 pg (27.0-33.4); MEAN CORPUSCULAR HGB CONC 34.4 g/dL (32.0-36.0); MEAN CORPUSCULAR VOLUME 79 fl (80-97); RED BLOOD COUNT 4.61 10^6/uL (3.72-5.28); RED CELL DISTRIBUTION WIDTH 15.1 % (11.5-14.0); SEGMENTED NEUTROPHILS % (AUTO) 75.5 % (42-78); WHITE BLOOD COUNT 13.1 10^3/uL (4.0-10.5)
[2017-02-09] MEDS ORDERED: NORMAL SALINE 1000 ML 1,000 ML IV ONE (17:11)
[2017-02-09 17:13] LABS: ANION GAP 15 (5-19); BLOOD UREA NITROGEN 10 mg/dL (7-20); CALCIUM 9.7 mg/dL (8.4-10.2); CARBON DIOXIDE 27 mmol/L (22-30); CHLORIDE 103 mmol/L (98-107); CREATININE RESULT 0.89 mg/dL (0.52-1.25); GLUCOSE 127 mg/dL (75-110); POTASSIUM 3.7 mmol/L (3.6-5.0); SODIUM 144.6 mmol/L (137-145)
[2017-02-09 17:16] LABS: APPEARANCE,URINE SLIGHTLY-CLOUDY; BILIRUBIN,URINE NEGATIVE (NEGATIVE); GLUCOSE, URINE NEGATIVE (NEGATIVE); KETONES,URINE NEGATIVE (NEGATIVE); LEUKOCYTE ESTERASE,URINE MODERATE (NEGATIVE); NITRITE,URINE NEGATIVE (NEGATIVE); PROTEIN,URINE NEGATIVE (NEGATIVE); UROBILINOGEN,URINE NEGATIVE mg/dL (<2.0)
[2017-02-09] MEDS ORDERED: CEFTRIAXONE 1 GM/D5W RTU 50 ML IV ONE (17:28)
[2017-02-09 17:35] LABS: ALANINE AMINOTRANSFERASE 38 U/L (9-52); ALBUMIN 4.6 g/dL (3.5-5.0); ALKALINE PHOSPHATASE 186 U/L (38-126); ASPARTATE AMINO TRANSFERASE 37 U/L (14-36); BILIRUBIN,DIRECT 0.5 mg/dL (0.0-0.4); BILIRUBIN,TOTAL 1.1 mg/dL (0.2-1.3); LIPASE 73.9 U/L (23-300); TOTAL PROTEIN 9.1 g/dL (6.3-8.2)
[2017-02-09] MEDS ORDERED: METOCLOPRAMIDE HCL INJ/PF 10 MG/2 ML SDV IV ONE (17:41)
[2017-02-09] MEDS ORDERED: DICYCLOMINE HCL INJ 20 MG/2 ML AMPULE IM ONE (17:45)
[2017-02-09] MEDS ORDERED: AMPICILLIN SOD INJ 1 GM VIAL IV ONE (17:47)
[2017-02-09] MEDS ORDERED: LORAZEPAM 0.5 MG TABLET PO ONE (19:11)
[2017-02-09 22:35] VITALS: BP 126/77
== END 2017-02-09 20:43 | disposition home or self-care (01) ==
LOC: ER 16:19
DX: N30.01 Acute cystitis with hematuria (principal); M54.9 Dorsalgia, unspecified; R11.0 Nausea
CPT/HCPCS: 99284; 96372; 96375; 96365; 96367; 36415; 87040; 87086; 84702; 83690; 85025; 80076; 80048; 81001; J0290; J0500; J2765; J7030; J0696; A9270

== ENCOUNTER 2017-03-11 20:30 | Emergency (ER) | payer MEDICARE, MEDICAID ==
[2017-03-11] MEDS ORDERED: NORMAL SALINE 1000 ML 1,000 ML IV ONE (22:32)
--- NOTE | 2017-03-11 22:33 | ER Document Report ---
ED General - General Mode of Arrival: Ambulatory Information source: Patient TRAVEL OUTSIDE OF THE [place] IN LAST 30 DAYS: No - HPI Onset: This morning - Refer to HPI notes Quality of pain: Burning Associated symptoms: Fever, Vomiting Similar symptoms previously: Yes Recently seen / treated by doctor: No <JAN BARNETT - Last Filed: 03/12/17 02:39> <MADINAJULESLYDIA - Last Filed: 03/12/17 06:08> - General Chief Complaint: L flank pain, fever, dysuria Stated Complaint: BACK PAIN Time Seen by Provider: 03/11/17 22:30 Notes: Patient is a 31 year old female presenting to the emergency department for left flank pain and dysuria. Patient states her symptoms were onset this morning. Patient states that she has some pain and burning with urination along with some vomiting and fevers. Patient also complains of some tachycardia. Patient denies any diarrhea. Patient states she has a history of kidney stones and UTIs. Patient is allergic to sulfa drugs and morphine. (JAN BARNETT) - Related Data Allergies/Adverse Reactions: morphine [Morphine] Allergy (Severe, Verified 10/13/16 21:35) Itching Sulfa (Sulfonamide Antibiotics) Allergy (Severe, Verified 10/13/16 21:35) Rash, Difficulty breathing Past Medical History - General Information source: Patient - Social History Smoking Status: Never Smoker Cigarette use (# per day): No Chew tobacco use (# tins/day): No Frequency of alcohol use: None Drug Abuse: None Family History: None Patient has suicidal ideation: No Patient has homicidal ideation: No Neurological Medical History: Reports: Hx Migraine Renal/ Medical History: Reports: Hx Kidney Stones - known stones bilaterally GI Medical History: Reports: Hx Gastroesophageal Reflux Disease, Hx Ulcer Psychiatric Medical History: Reports: Hx Anxiety, Hx Depression Past Surgical History: Reports: Hx Abdominal Surgery - Intestinal, Hx Section - X 3, Hx Cholecystectomy, Hx Genitourinary Surgery - Ureteral stent March 01, 2015, [place]., Hx Hysterectomy - Immunizations Immunizations up to date: Yes Hx Diphtheria, Pertussis, Tetanus Vaccination: No <JAN BARNETT - Last Filed: 03/12/17 02:39> Review of Systems - Review of Systems Constitutional: See HPI, Fever EENT: No symptoms reported Cardiovascular: No symptoms reported Respiratory: No symptoms reported Gastrointestinal: See HPI, Vomiting Genitourinary: See HPI, Burning, Dysuria, Flank pain Female Genitourinary: No symptoms reported Musculoskeletal: No symptoms reported Skin: No symptoms reported Hematologic/Lymphatic: No symptoms reported Neurological/Psychological: No symptoms reported -: Yes All other systems reviewed and negative <JAN BARNETT - Last Filed: 03/12/17 02:39> Physical Exam <JAN BARNETT - Last Filed: 03/12/17 02:39> <LYDIA QUACH - Last Filed: 03/12/17 06:08> - Vital signs Vitals: Temp 98.5 F 03/11/17 22:20 - Notes Notes: GENERAL: Alert, interacts well. No acute distress. HEAD: Normocephalic, atraumatic. EYES: Pupils equal, round, and reactive to light. Extraocular movements intact. ENT: Oral mucosa moist, tongue midline. NECK: Full range of motion. Supple. Trachea midline. LUNGS: Clear to auscultation bilaterally, no wheezes, rales, or rhonchi. No respiratory distress. HEART: Mild tachycardia. Regular rhythm. No murmurs, gallops, or rubs. ABDOMEN: Soft, non-tender. Non-distended. Bowel sounds present in all 4 quadrants. BACK: No CVA tenderness to percussion EXTREMITIES: Moves all 4 extremities spontaneously. No edema, no cyanosis. NEUROLOGICAL: Alert and oriented x3. Hard of hearing, speech consistent with deafness. PSYCH: Normal affect, normal mood. SKIN: Warm, dry, normal turgor. No rashes or lesions noted. (JAN BARNETT) Course - Laboratory Result Diagrams: 03/11/17 22:56 03/11/17 22:56 - Consults Dr. Brand Time consulted: 01:25 [facility] Time consulted: 01:37 <JAN BARNETT - Last Filed: 03/12/17 02:39> - Laboratory Result Diagrams: 03/11/17 22:56 03/11/17 22:56 <LYDIA QUACH - Last Filed: 03/12/17 06:08> - Re-evaluation Re-evalutation: 03/12/17 02:38 CBC shows significant leukocytosis at 22.9, CO2 slightly low, total and direct bilirubin slightly elevated but no clinical or historical evidence of biliary pathology. UA shows blood, leukocyte esterase and >182 WBCs, but no nitrites. urine and blood cultures are pending. CT scan shows left distal ureteral stone 4 mm with mild to moderate hydronephrosis and zen-nephric stranding. Patient was given fluids and rocephin, no evidence of sepsis currently. Pain unchanged with toradol, declines furhter pain medication. Dr. Brand declines to admit this patient as we have no urologist watermelon inspector. Dr. Donovan and Dr. Rodarte consulted and accept patient to [facility]. 03/12/17 05:53 03/12/17 06:07 Transport is at bedside, patient requesting pain medication, patient will be given a dose of Dilaudid with Benadryl for the itching. Previously patient's vital signs at been recorded as hypotensive however when the blood pressure cuff was readjusted her blood pressure normalized without any other intervention. Vital signs remained normal at this time, no evidence of septic shock at this time. I did personally recheck the patient and Patient is stable for transport. (LYDIA QUACH) - Vital Signs Vital signs: Temp Pulse Resp BP Pulse Ox 98.5 F 14 106/75 98 03/11/17 22:20 03/12/17 05:31 03/12/17 05:31 03/12/17 05:31 - Laboratory Laboratory results interpreted by ia: 03/11/17 03/11/17 03/11/17 22:24 22:56 22:56 WBC 22.9 H RDW 14.9 H Band Neutrophils % 2 L Lymphocytes % (Manual) 10 L Abs Neuts (Manual) 18.3 H Abs Monocytes (Manual) 2.3 H Carbon Dioxide 20 L Est GFR (Non-Af Amer) 53 L Glucose 133 H Total Bilirubin 2.3 H Direct Bilirubin 0.7 H Alkaline Phosphatase 154 H Total Protein 8.3 H Urine Protein 100 H Urine Blood SMALL H Ur Leukocyte Esterase LARGE H - Consults Dr. Brand Reason for consultation: 03/12/17 01:[address] Brand to discuss patient; he recommends that the patient should be transferred to a facility with urology. (JAN BARNETT) [facility] Transfer [place] Reason for consultation: 03/12/17 01:37 Contacted [facility] for possible transfer, they will call back. 03/12/17 01:[address] Joey Donovan, Urology; he is happy to accept the patient but he will have the hospitalist call to formally accept the patient. 03/12/17 01:[address] Wally Felipe, Hospitalist, who accepts the patient for admission. (JAN BARNETT) 03/12/17 02:[address] Wally Dobbins accepts the patient, not mariangel Frostibmarbella mis- stated name. (LYDIA QUACH) Discharge <JAN BARNETT - Last Filed: 03/12/17 02:39> <LYDIA QUACH - Last Filed: 03/12/17 06:08> - Discharge Clinical Impression: Pyelonephritis, Ureteral calculus, left, Hydronephrosis due to obstruction of ureter Condition: Fair Disposition: [facility] Scribe Attestation: 03/12/17 02:39 I personally performed the services described in the documentation, reviewed and edited the documentation which was dictated to the scribe in my presence, and it accurately records my words and actions. (LYDIA QUACH) Scribe Documentation - Scribe Written by Little:: Little Boothe, 03/12/17 12:16 acting as scribe for :: Dianna <JAN BARNETT - Last Filed: 03/12/17 02:39>
[2017-03-11] MEDS ORDERED: KETOROLAC TROMETHAMINE INJ/PF 30 MG/1 ML SDV IV ONE (22:45)
[2017-03-11] MEDS ORDERED: ONDANSETRON HCL INJ/PF 4 MG/2 ML SDV IV ONE (22:45)
[2017-03-11] MEDS ORDERED: ACETAMINOPHEN 325 MG TABLET PO ONE (22:45)
[2017-03-11 22:48] LABS: APPEARANCE,URINE TURBID; BILIRUBIN,URINE NEGATIVE (NEGATIVE); GLUCOSE, URINE NEGATIVE (NEGATIVE); KETONES,URINE NEGATIVE (NEGATIVE); LEUKOCYTE ESTERASE,URINE LARGE (NEGATIVE); NITRITE,URINE NEGATIVE (NEGATIVE); PROTEIN,URINE 100 mg/dL (NEGATIVE); URINE SPECIFIC GRAVITY 1.014; UROBILINOGEN,URINE NEGATIVE mg/dL (<2.0)
[2017-03-11 23:24] LABS: HEMATOCRIT 38.2 % (36.0-47.0); HEMOGLOBIN 13.1 g/dL (12.0-15.5); HGB HCT DIFFERENCE 1.1; MEAN CORPUSCULAR HEMOGLOBIN 27.4 pg (27.0-33.4); MEAN CORPUSCULAR HGB CONC 34.4 g/dL (32.0-36.0); MEAN CORPUSCULAR VOLUME 80 fl (80-97); RED CELL DISTRIBUTION WIDTH 14.9 % (11.5-14.0); WHITE BLOOD COUNT 22.9 10^3/uL (4.0-10.5)
[2017-03-11 23:26] LABS: ALANINE AMINOTRANSFERASE 37 U/L (9-52); ALBUMIN 4.3 g/dL (3.5-5.0); ALKALINE PHOSPHATASE 154 U/L (38-126); ANION GAP 16 (5-19); ASPARTATE AMINO TRANSFERASE 23 U/L (14-36); BILIRUBIN,DIRECT 0.7 mg/dL (0.0-0.4); BILIRUBIN,TOTAL 2.3 mg/dL (0.2-1.3); BLOOD UREA NITROGEN 16 mg/dL (7-20); CALCIUM 9.4 mg/dL (8.4-10.2); CARBON DIOXIDE 20 mmol/L (22-30); CHLORIDE 105 mmol/L (98-107); CREATININE RESULT 1.18 mg/dL (0.52-1.25); GLUCOSE 133 mg/dL (75-110); POTASSIUM 3.8 mmol/L (3.6-5.0); SODIUM 140.5 mmol/L (137-145); TOTAL PROTEIN 8.3 g/dL (6.3-8.2)
[2017-03-11 23:49] LABS: ANISOCYTOSIS SLIGHT; BAND NEUTROPHILS % (MANUAL) 2 % (3-5); BASOPHILS % (MANUAL) 0 % (0-2); EOSINOPHILS % (MANUAL) 0 % (0-6); LYMPHOCYTES % (MANUAL) 10 % (13-45); MICROCYTOSIS SLIGHT; TOTAL CELLS COUNTED 100
[2017-03-12] MEDS ORDERED: CEFTRIAXONE 1 GM/D5W RTU 50 ML IV ONE (00:32)
[2017-03-12] MEDS ORDERED: HYDROMORPHONE HCL INJ/PF 2 MG/ML AMPULE IV ONE (06:03)
[2017-03-12] MEDS ORDERED: DIPHENHYDRAMINE HCL 50 MG/ML VIAL IV ONE (06:03)
[2017-03-12 06:17] VITALS: BP 111/90
== END 2017-03-12 06:17 | disposition short-term general hospital (02) ==
LOC: ER 20:30
DX: N13.6 Pyonephrosis (principal); R10.9 Unspecified abdominal pain; R50.9 Fever, unspecified; R30.0 Dysuria; K21.9 Gastro-esophageal reflux disease without esophagitis; Z87.440 Personal history of urinary (tract) infections; Z88.6 Allergy status to analgesic agent; Z88.2 Allergy status to sulfonamides; Z87.442 Personal history of urinary calculi; Z90.49 Acquired absence of other specified parts of digestive tract; Z90.710 Acquired absence of both cervix and uterus
CPT/HCPCS: 99285; 96375; 96365; 36415; 87040; 87086; 85025; 81025; 87088; 80053; 81001; 87186; 76380; A9270; J1200; J1885; J1170; J2405; J7030; J0696

== ENCOUNTER 2017-05-26 22:40 | Emergency (ER) | payer MEDICARE, MEDICAID ==
[2017-05-26] MEDS ORDERED: KETOROLAC TROMETHAMINE 60 MG/2 ML SDV IM ONE (23:21)
[2017-05-26] MEDS ORDERED: ONDANSETRON 4 MG TAB.RAPDIS PO ONE (23:21)
--- NOTE | 2017-05-26 23:25 | ER Document Report ---
ED Medical Screen (RME) - General Chief Complaint: Flank Pain Stated Complaint: PAINFUL URINATION,ABDOMINAL PAIN Time Seen by Provider: 05/26/17 23:21 Mode of Arrival: Ambulatory Information source: Patient Notes: 31-year-old female presents to ED for left flank pain and pain with urination since yesterday she said she has had some body aches chills, fever and nausea. I have greeted and performed a rapid initial assessment of this patient. A comprehensive ED assessment and evaluation of the patient, analysis of test results and completion of medical decision making process will be conducted by an additional ED providers. TRAVEL OUTSIDE OF THE [place] IN LAST 30 DAYS: No - Related Data Allergies/Adverse Reactions: morphine [Morphine] Allergy (Severe, Verified 05/26/17 23:22) Itching Sulfa (Sulfonamide Antibiotics) Allergy (Severe, Verified 05/26/17 23:22) Rash, Difficulty breathing Past Medical History - Past Medical History Cardiac Medical History: Denies: Hx Coronary Artery Disease, Hx Heart Attack, Hx Hypertension Pulmonary Medical History: Denies: Hx Asthma, Hx Bronchitis, Hx COPD, Hx Pneumonia Neurological Medical History: Reports: Hx Migraine. Denies: Hx Cerebrovascular Accident, Hx Seizures Renal/ Medical History: Reports: Hx Kidney Stones - known stones bilaterally. Denies: Hx Peritoneal Dialysis GI Medical History: Reports: Hx Gastroesophageal Reflux Disease, Hx Ulcer Musculoskeltal Medical History: Denies Hx Arthritis Psychiatric Medical History: Reports: Hx Anxiety, Hx Depression Past Surgical History: Reports: Hx Abdominal Surgery - Intestinal, Hx Section - X 3, Hx Cholecystectomy, Hx Genitourinary Surgery - Ureteral stent March 01, 2015, [place]., Hx Hysterectomy - Immunizations Immunizations up to date: Yes Hx Diphtheria, Pertussis, Tetanus Vaccination: No Physical Exam - Vital signs Vitals: Temp Pulse Resp BP Pulse Ox 99.2 F 128 H 24 H 132/71 H 100 05/26/17 23:21 05/26/17 23:21 05/26/17 23:21 05/26/17 23:21 05/26/17 23:21 Course - Vital Signs Vital signs: Temp Pulse Resp BP Pulse Ox 99.2 F 128 H 24 H 132/71 H 100 05/26/17 23:21 05/26/17 23:21 05/26/17 23:21 05/26/17 23:21 05/26/17 23:21
[2017-05-27 00:46] LABS: AMORPHOUS SEDIMENT,URINE TRACE /HPF; APPEARANCE,URINE CLOUDY; BILIRUBIN,URINE NEGATIVE (NEGATIVE); GLUCOSE, URINE NEGATIVE (NEGATIVE); KETONES,URINE NEGATIVE (NEGATIVE); LEUKOCYTE ESTERASE,URINE LARGE (NEGATIVE); NITRITE,URINE POSITIVE (NEGATIVE); PROTEIN,URINE 30 mg/dL (NEGATIVE); URINE SPECIFIC GRAVITY 1.011; UROBILINOGEN,URINE NEGATIVE mg/dL (<2.0)
[2017-05-27] MEDS ORDERED: CEFTRIAXONE 1 GM/D5W RTU 50 ML IV ONE (01:33)
[2017-05-27] MEDS ORDERED: FENTANYL CITRATE INJ/PF 100 MCG/2 ML AMPUL IV ONE (01:33)
[2017-05-27] MEDS ORDERED: NORMAL SALINE 1000 ML 1,000 ML IV ONE (01:33)
--- NOTE | 2017-05-27 01:35 | ER Document Report ---
ED General - General Chief Complaint: Flank Pain Stated Complaint: PAINFUL URINATION,ABDOMINAL PAIN Time Seen by Provider: 05/26/17 23:21 Mode of Arrival: Ambulatory Notes: Patient is a 31-year-old female without past medical history, does have a prior history of pyelonephritis in the past who presents with bilateral flank pain, nausea, vomiting and fever for the past 24 hours. Patient states that she has had difficulty tolerating oral intake today but has been able to tolerate sips of water. This feels similar to when she has had pyelonephritis in the past. Does describe a dull, constant aching pain to the bilateral flank. Nothing improves or worsens her pain. She denies any focal abdominal pain. TRAVEL OUTSIDE OF THE [place] IN LAST 30 DAYS: No - Related Data Allergies/Adverse Reactions: morphine [Morphine] Allergy (Severe, Verified 05/26/17 23:22) Itching Sulfa (Sulfonamide Antibiotics) Allergy (Severe, Verified 05/26/17 23:22) Rash, Difficulty breathing Past Medical History - General Information source: Patient - Social History Smoking Status: Never Smoker Frequency of alcohol use: None Drug Abuse: None Lives with: Spouse/Significant other Family History: Reviewed & Not Pertinent Patient has suicidal ideation: No Patient has homicidal ideation: No - Past Medical History Cardiac Medical History: Denies: Hx Coronary Artery Disease, Hx Heart Attack, Hx Hypertension Pulmonary Medical History: Denies: Hx Asthma, Hx Bronchitis, Hx COPD, Hx Pneumonia Neurological Medical History: Reports: Hx Migraine. Denies: Hx Cerebrovascular Accident, Hx Seizures Renal/ Medical History: Reports: Hx Kidney Stones - known stones bilaterally. Denies: Hx Peritoneal Dialysis GI Medical History: Reports: Hx Gastroesophageal Reflux Disease, Hx Ulcer Musculoskeltal Medical History: Denies Hx Arthritis Psychiatric Medical History: Reports: Hx Anxiety, Hx Depression Past Surgical History: Reports: Hx Abdominal Surgery - Intestinal, Hx Section - X 3, Hx Cholecystectomy, Hx Genitourinary Surgery - Ureteral stent March 01, 2015, [place]., Hx Hysterectomy - Immunizations Immunizations up to date: Yes Hx Diphtheria, Pertussis, Tetanus Vaccination: No Review of Systems - Review of Systems Notes: Constitutional: Positive for fever. HENT: Negative for sore throat. Eyes: Negative for visual changes. Cardiovascular: Negative for chest pain. Respiratory: Negative for shortness of breath. Gastrointestinal: Positive for bilateral flank pain and vomiting Genitourinary: Positive for dysuria. Musculoskeletal: Negative for back pain. Skin: Negative for rash. Neurological: Negative for headaches, weakness or numbness. 10 point ROS negative except as marked above and in HPI. Physical Exam - Vital signs Vitals: Temp Pulse Resp BP Pulse Ox 99.2 F 128 H 24 H 132/71 H 100 05/26/17 23:21 05/26/17 23:21 05/26/17 23:21 05/26/17 23:21 05/26/17 23:21 Interpretation: Tachycardic, Tachypneic Notes: PHYSICAL EXAMINATION: GENERAL: Appears mildly uncomfortable but in no acute distress. HEAD: Atraumatic, normocephalic. EYES: Pupils equal round and reactive to light, extraocular movements intact, sclera anicteric, conjunctiva are normal. ENT: nares patent, oropharynx clear without exudates. Moderately dry mucous membranes. NECK: Normal range of motion, supple without lymphadenopathy LUNGS: Breath sounds clear to auscultation bilaterally and equal. No wheezes rales or rhonchi. HEART: Regular tachycardia without murmurs ABDOMEN: Soft, nontender, normoactive bowel sounds. No guarding, no rebound. No masses appreciated. Bilateral flank tenderness to palpation EXTREMITIES: Normal range of motion, no pitting or edema. No cyanosis. NEUROLOGICAL: No focal neurological deficits. Moves all extremities spontaneously and on command. PSYCH: Normal mood, normal affect. SKIN: Warm, Dry, normal turgor, no rashes or lesions noted. Course - Re-evaluation Re-evalutation: 05/27/17 01:34 Presentation is most consistent with acute pyelonephritis. Laboratories do demonstrate a large amount of white blood cells in the urine as well as bacteria. Patient has had constitutional symptoms at home as well as a fever. CVA tenderness is present on exam. The remainder laboratories are relatively unremarkable without evidence of renal dysfunction. I do not suspect an acute appendicitis, biliary pathology, pancreatitis, intra-abdominal abscess, or tubo- ovarian abscess based on history and examination. Patient has been given a dose of IV ceftriaxone and a liter of fluids. Patient is able to tolerate oral intake without difficulty. Will be discharged home on 7 day course of cephalexin. A urine culture has been sent. Strict return precautions and follow-up recommendations have been discussed at length. - Vital Signs Vital signs: Temp Pulse Resp BP Pulse Ox 99.2 F 128 H 24 H 132/71 H 100 05/26/17 23:21 05/26/17 23:21 05/26/17 23:21 05/26/17 23:21 05/26/17 23:21 - Laboratory Result Diagrams: 05/27/17 02:01 Laboratory results interpreted by me: 05/26/17 05/27/17 23:25 02:01 Carbon Dioxide 21 L Glucose 117 H Urine Protein 30 H Urine Blood SMALL H Urine Nitrite POSITIVE H Ur Leukocyte Esterase LARGE H Discharge - Discharge Clinical Impression: Pyelonephritis Condition: Good Disposition: HOME, SELF-CARE Additional Instructions: You have been diagnosed with a condition called pyelonephritis which is an infection involving your kidneys and bladder. You have been given a dose of antibiotics here in the emergency department to help begin to treat this infection. Your also being sent home on antibiotics. Please start taking these later on today when you fill the prescription. Complete the course even if you feel better. Please return if you have persistent vomiting, pass out, have worsening pain, become unable to tolerate fluids, or have any other symptoms that are concerning to you. Please follow-up with your primary care physician in the next 24-48 hours. Prescriptions: Cephalexin Monohydrate [Keflex 500 mg Capsule] 500 mg PO TID #21 capsule
[2017-05-27 02:47] LABS: ANION GAP 15 (5-19); BLOOD UREA NITROGEN 15 mg/dL (7-20); CALCIUM 9.7 mg/dL (8.4-10.2); CARBON DIOXIDE 21 mmol/L (22-30); CHLORIDE 106 mmol/L (98-107); CREATININE RESULT 1.03 mg/dL (0.52-1.25); GLUCOSE 117 mg/dL (75-110); POTASSIUM 4.3 mmol/L (3.6-5.0); SODIUM 142.1 mmol/L (137-145)
[2017-05-27 03:05] VITALS: BP 111/76
[2017-05-27] MEDS ORDERED: PHENAZOPYRIDINE HCL 200 MG TABLET PO ONE (03:15)
== END 2017-05-27 03:22 | disposition home or self-care (01) ==
LOC: ER 22:40
DX: N12 Tubulo-interstitial nephritis, not specified as acute or chronic (principal); R10.9 Unspecified abdominal pain; R11.2 Nausea with vomiting, unspecified; R50.9 Fever, unspecified; R00.0 Tachycardia, unspecified; R06.82 Tachypnea, not elsewhere classified; Z88.5 Allergy status to narcotic agent; Z88.2 Allergy status to sulfonamides; Z87.442 Personal history of urinary calculi; Z90.49 Acquired absence of other specified parts of digestive tract; Z98.890 Other specified postprocedural states
CPT/HCPCS: 99284; 96372; 96375; 96365; 36415; 87086; 81025; 80048; 81001; J1885; A9270 ×2; J3010; J7030; J0696; J3490; S0119

== ENCOUNTER 2017-08-17 18:39 | Emergency (ER) | payer MEDICARE, MEDICAID ==
--- NOTE | 2017-08-17 19:58 | ER Document Report ---
HPI - HPI Patient complains to provider of: Left knee pain Onset: Yesterday Onset/Duration: Sudden Quality of pain: Achy Severity: Mild Pain Level: 2 Context: Patient states she fell yesterday injuring left knee. Patient states she thinks she blacked out, she is not sure. Denies headache or head injury at that time or since falling. Patient states she has been fine since then. Associated Symptoms: None Exacerbated by: Movement Relieved by: Remaining still Similar symptoms previously: Yes Recently seen / treated by doctor: No - ROS ROS below otherwise negative: Yes Systems Reviewed and Negative: Yes All other systems reviewed and negative - CONSTITUTIONAL Constitutional: DENIES: Fever - EENT EENT: DENIES: Congestion - NEURO Neurology: DENIES: Headache - CARDIOVASCULAR Cardiovascular: DENIES: Chest pain - RESPIRATORY Respiratory: DENIES: Trouble Breathing - GASTROINTESTINAL Gastrointestinal: DENIES: Abdominal Pain - URINARY Urinary: DENIES: Dysuria - REPRODUCTIVE Reproductive: DENIES: : - MUSCULOSKELETAL Musculoskeletal: REPORTS: Extremity pain - Left knee - DERM Skin Color: Normal Past Medical History - General Information source: Patient - Social History Smoking Status: Never Smoker Frequency of alcohol use: None Drug Abuse: None Lives with: Family Family History: Reviewed & Not Pertinent Neurological Medical History: Reports: Hx Migraine Renal/ Medical History: Reports: Hx Kidney Stones - known stones bilaterally GI Medical History: Reports: Hx Gastroesophageal Reflux Disease, Hx Ulcer Psychiatric Medical History: Reports: Hx Anxiety, Hx Depression Past Surgical History: Reports: Hx Abdominal Surgery - Intestinal, Hx Section - X 3, Hx Cholecystectomy, Hx Genitourinary Surgery - Ureteral stent March 01, 2015, [place]., Hx Hysterectomy - Immunizations Immunizations up to date: Yes Hx Diphtheria, Pertussis, Tetanus Vaccination: No Vertical Provider Document - CONSTITUTIONAL Agree With Documented VS: Yes Exam Limitations: No Limitations General Appearance: WD/WN, No Apparent Distress - INFECTION CONTROL TRAVEL OUTSIDE OF THE [place] IN LAST 30 DAYS: No - HEENT HEENT: Atraumatic, Normal ENT Exam, Normocephalic, PERRLA - EOMI - NECK Neck: Normal Inspection, Supple - RESPIRATORY Respiratory: Breath Sounds Normal, No Respiratory Distress O2 Sat by Pulse Oximetry: 98 - CARDIOVASCULAR Cardiovascular: Regular Rate, Regular Rhythm - GI/ABDOMEN Gastrointestinal: Abdomen Soft, Abdomen Non-Tender, Normal Bowel Sounds - MUSCULOSKELETAL/EXTREMETIES Musculoskeletal/Extremeties: MAEW Notes: Patient has superficial abrasions to both knees and right elbow. Has full range of motion to all extremities, but complains of increased pain with movement of left knee. No obvious swelling noted. - NEURO Level of Consciousness: Awake, Alert, Appropriate Notes: Cranial nerves grossly intact - DERM Integumentary: Warm, Dry Course - Re-evaluation Re-evalutation: 08/17/17 22:03 Labs and x-rays discussed with patient. - Vital Signs Vital signs: Temp Pulse Resp BP Pulse Ox 98.8 F 106 H 20 125/83 98 08/17/17 18:44 08/17/17 18:44 08/17/17 18:44 08/17/17 18:44 08/17/17 18:44 - Laboratory Result Diagrams: 08/17/17 21:20 08/17/17 21:20 Discharge - Discharge Clinical Impression: Abrasions of multiple sites, Bacteria in urine Contusion of left knee Qualifiers: Encounter type: initial encounter Qualified Code(s): S80.02XA - Contusion of left knee, initial encounter Hematuria Qualifiers: Hematuria type: unspecified type Qualified Code(s): R31.9 - Hematuria, unspecified Condition: Good Disposition: HOME, SELF-CARE Additional Instructions: Take all antibiotics as prescribed, urine culture pending. Usually takes 2-3 days for results. Tylenol or ibuprofen for knee pain Keep abrasions clean and dry Follow-up with your doctor next week for recheck Return as needed Prescriptions: Cephalexin [Cephalexin 500 MG Capsule] 1 cap PO QID #20 capsule
--- NOTE | 2017-08-17 20:29 | RADIOLOGY REPORT (SQ) ---
EXAM DESCRIPTION: KNEE LEFT 4 VIEW COMPLETED DATE/TIME: 08/17/2017 8:12 pm REASON FOR STUDY: injury COMPARISON: None. NUMBER OF VIEWS: Four views. TECHNIQUE: AP, lateral, and both oblique radiographic images acquired of the left knee. LIMITATIONS: None. FINDINGS: MINERALIZATION: Normal. BONES: No acute fracture or dislocation. No worrisome bone lesions. JOINT: No effusion. SOFT TISSUES: No soft tissue swelling. No radio-opaque foreign body. OTHER: No other significant finding. IMPRESSION: NEGATIVE STUDY OF THE LEFT KNEE. NO RADIOGRAPHIC EVIDENCE OF ACUTE INJURY. TECHNICAL DOCUMENTATION: JOB ID: [id number] [employer]- All Rights Reserved
[2017-08-17 21:34] LABS: ABSOLUTE LYMPHOCYTES (AUTO) 2.5 10^3/uL (0.5-4.7); ABSOLUTE MONOCYTES (AUTO) 0.4 10^3/uL (0.1-1.4); ABSOLUTE NEUT (AUTO) 6.6 10^3/uL (1.7-8.2); BASOPHILS % (AUTO) 0.4 % (0-2); EOSINOPHILS % (AUTO) 0.4 % (0-6); HEMATOCRIT 36.7 % (36.0-47.0); HEMOGLOBIN 12.9 g/dL (12.0-15.5); LYMPHOCYTES % (AUTO) 26.3 % (13-45); MEAN CORPUSCULAR HEMOGLOBIN 27.7 pg (27.0-33.4); MEAN CORPUSCULAR VOLUME 79 fl (80-97); MONOCYTES % (AUTO) 4.6 % (3-13); RED BLOOD COUNT 4.65 10^6/uL (3.72-5.28); RED CELL DISTRIBUTION WIDTH 15.1 % (11.5-14.0); SEGMENTED NEUTROPHILS % (AUTO) 68.3 % (42-78); WHITE BLOOD COUNT 9.7 10^3/uL (4.0-10.5)
[2017-08-17 21:44] LABS: ALANINE AMINOTRANSFERASE 32 U/L (9-52); ALBUMIN 4.5 g/dL (3.5-5.0); ALKALINE PHOSPHATASE 139 U/L (38-126); ANION GAP 14 (5-19); ASPARTATE AMINO TRANSFERASE 20 U/L (14-36); BILIRUBIN,DIRECT 0.5 mg/dL (0.0-0.4); BILIRUBIN,TOTAL 0.6 mg/dL (0.2-1.3); BLOOD UREA NITROGEN 11 mg/dL (7-20); CALCIUM 9.8 mg/dL (8.4-10.2); CARBON DIOXIDE 27 mmol/L (22-30); CHLORIDE 103 mmol/L (98-107); CREATININE RESULT 1.09 mg/dL (0.52-1.25); GLUCOSE 114 mg/dL (75-110); POTASSIUM 3.9 mmol/L (3.6-5.0); SODIUM 144.2 mmol/L (137-145); TOTAL PROTEIN 8.6 g/dL (6.3-8.2)
[2017-08-17 21:49] LABS: APPEARANCE,URINE SLIGHTLY-CLOUDY; BILIRUBIN,URINE NEGATIVE (NEGATIVE); GLUCOSE, URINE NEGATIVE (NEGATIVE); KETONES,URINE NEGATIVE (NEGATIVE); LEUKOCYTE ESTERASE,URINE LARGE (NEGATIVE); NITRITE,URINE NEGATIVE (NEGATIVE); PROTEIN,URINE NEGATIVE (NEGATIVE); URINE SPECIFIC GRAVITY 1.009; UROBILINOGEN,URINE NEGATIVE mg/dL (<2.0)
[2017-08-17] MEDS ORDERED: CEPHALEXIN 500 MG CAPSULE PO ONE (22:04)
[2017-08-17 22:31] VITALS: BP 118/68
== END 2017-08-17 22:31 | disposition home or self-care (01) ==
LOC: ER 18:39
DX: S80.02XA Contusion of left knee, initial encounter (principal); S80.212A Abrasion, left knee, initial encounter; S80.211A Abrasion, right knee, initial encounter; S50.311A Abrasion of right elbow, initial encounter; R82.71 Bacteriuria; M25.562 Pain in left knee; R31.9 Hematuria, unspecified; W19.XXXA Unspecified fall, initial encounter
CPT/HCPCS: 99283; 36415; 87086; 85025; 80053; 81001; 73562; A9270

== ENCOUNTER 2017-12-06 10:42 | Emergency (ER) | payer MEDICARE, MEDICAID ==
[2017-12-06] MEDS ORDERED: LORAZEPAM 1 MG TABLET PO ONE (11:51)
--- NOTE | 2017-12-06 11:54 | ER Document Report ---
ED General - General Chief Complaint: Anxiety Stated Complaint: DIZZY, LEG/ARM NUMB Time Seen by Provider: 12/06/17 11:46 Mode of Arrival: Ambulatory Information source: Patient Notes: 32-year-old female history of anxiety presents with panic attack. Patient notes that when she awoke today she saw purple spots on her legs and is afraid that her blood level is low. Patient denies any heavy bleeding or easy bruising pt reads lips due to baseline hearing disability TRAVEL OUTSIDE OF THE [place] IN LAST 30 DAYS: No - HPI Onset: Just prior to arrival Onset/Duration: Sudden Quality of pain: Other - tingling in legs and hands Severity: Mild Pain Level: Denies Associated symptoms: Other Exacerbated by: Denies Relieved by: Denies Similar symptoms previously: No Recently seen / treated by doctor: No - Related Data Allergies/Adverse Reactions: morphine [Morphine] Allergy (Severe, Verified 12/06/17 10:43) Itching Sulfa (Sulfonamide Antibiotics) Allergy (Severe, Verified 12/06/17 10:43) Rash, Difficulty breathing Past Medical History - Social History Smoking Status: Never Smoker Cigarette use (# per day): No Chew tobacco use (# tins/day): No Smoking Education Provided: No Family History: Reviewed & Not Pertinent - Past Medical History Cardiac Medical History: Denies: Hx Coronary Artery Disease, Hx Heart Attack, Hx Hypertension Pulmonary Medical History: Denies: Hx Asthma, Hx Bronchitis, Hx COPD, Hx Pneumonia Neurological Medical History: Reports: Hx Migraine. Denies: Hx Cerebrovascular Accident, Hx Seizures Renal/ Medical History: Reports: Hx Kidney Stones - known stones bilaterally. Denies: Hx Peritoneal Dialysis GI Medical History: Reports: Hx Gastroesophageal Reflux Disease, Hx Ulcer Musculoskeltal Medical History: Denies Hx Arthritis Psychiatric Medical History: Reports: Hx Anxiety, Hx Depression Past Surgical History: Reports: Hx Abdominal Surgery - Intestinal, Hx Section - X 3, Hx Cholecystectomy, Hx Genitourinary Surgery - Ureteral stent March 01, 2015, [place]., Hx Hysterectomy - Immunizations Immunizations up to date: Yes Hx Diphtheria, Pertussis, Tetanus Vaccination: No Review of Systems - Review of Systems Notes: REVIEW OF SYSTEMS: CONSTITUTIONAL : Denies fever, chills, or sweats. Denies recent illness. EENT: Denies eye, ear, throat, or mouth pain or symptoms. Denies nasal or sinus congestion or discharge. Denies throat, tongue, or mouth swelling or difficulty swallowing. CARDIOVASCULAR: Denies chest pain. Denies palpitations or racing or irregular heart beat. Denies ankle edema. RESPIRATORY: Denies cough, cold, or chest congestion. Denies shortness of breath, difficulty breathing, or wheezing. GASTROINTESTINAL: Denies abdominal pain or distention. Denies nausea, vomiting , or diarrhea. Denies blood in vomitus, stools, or per rectum. Denies black, tarry stools. Denies constipation. GENITOURINARY: Denies difficulty urinating, painful urination, burning, frequency, blood in urine, or discharge. FEMALE GENITOURINARY: Denies vaginal bleeding, heavy or abnormal periods, irregular periods. Denies vaginal discharge or odor. MUSCULOSKELETAL: Denies back or neck pain or stiffness. Denies joint pain or swelling. SKIN: Denies rash, lesions or sores. HEMATOLOGIC : Denies easy bruising or bleeding. LYMPHATIC: Denies swollen, enlarged glands. NEUROLOGICAL: Admits to tingling in hands and feet PSYCHIATRIC: Admits to panic attack ALL OTHER SYSTEMS REVIEWED AND NEGATIVE. PHYSICAL EXAMINATION: GENERAL: Well-appearing, well-nourished and in no acute distress. Patient is obviously anxious HEAD: Atraumatic, normocephalic. EYES: Pupils equal round and reactive to light, extraocular movements intact, conjunctiva are normal. ENT: Nares patent, oropharynx clear without exudates. Moist mucous membranes. NECK: Normal range of motion, supple without lymphadenopathy LUNGS: Breath sounds clear to auscultation bilaterally and equal. No wheezes rales or rhonchi. HEART: Regular rate and rhythm without murmurs ABDOMEN: Soft, nontender, nondistended abdomen. No guarding, no rebound. No masses appreciated. Female : deferred Musculoskeletal: Normal range of motion, no pitting or edema. No cyanosis. NEUROLOGICAL: Cranial nerves grossly intact. Normal speech, normal gait. Normal sensory, motor exams PSYCH: Tearful SKIN: Warm, Dry, normal turgor, no rashes or lesions noted. No bruising is noted Dictation was performed using [employer] voice recognition software Physical Exam - Vital signs Vitals: Temp Pulse Resp BP Pulse Ox 97.8 F 144 H 22 H 143/86 H 99 12/06/17 10:47 12/06/17 10:47 12/06/17 10:47 12/06/17 10:47 12/06/17 10:47 Course - Re-evaluation Re-evalutation: 12/06/17 11:54 Patient's presentation is extremely benign she is obviously having a panic attack however I will appease her with basic lab work to evaluate for any bleeding disorders 12/06/17 13:07 Lab work noted no significant abnormality, patient's has no DVT PE risk factors heart rate is improved and she notes her anxiety is coming down I will discharge with extremely close follow-up with primary care with very strict return precautions. She does not have any calf pain any shortness of breath After performing a Medical Screening Examination, I estimate there is LOW risk for RUPTURED ESOPHAGUS, PNEUMOTHORAX, PULMONARY EMBOLISM, ACUTE CORONARY SYNDROME, OR THORACIC AORTIC DISSECTION, thus I consider the discharge disposition reasonable. I have reevaluated this patient multiple times and no significant life threatening changes are noted. The patient and I have discussed the diagnosis and risks, and we agree with discharging home with close follow-up. We also discussed returning to the Emergency Department immediately if new or worsening symptoms occur. We have discussed the symptoms which are most concerning (e.g., bloody sputum, worsening pain or shortness of breath) that necessitate immediate return. - Vital Signs Vital signs: Temp Pulse Resp BP Pulse Ox 97.8 F 144 H 22 H 143/86 H 99 12/06/17 10:47 12/06/17 10:47 12/06/17 10:47 12/06/17 10:47 12/06/17 10:47 - Laboratory Result Diagrams: 12/06/17 12:00 12/06/17 12:00 Laboratory results interpreted by me: 12/06/17 12/06/17 12:00 12:00 RDW 14.3 H Potassium 3.5 L Glucose 129 H Alkaline Phosphatase 128 H Total Protein 8.3 H Discharge - Discharge Clinical Impression: Panic attack Condition: Stable Disposition: HOME, SELF-CARE Instructions: Anxiety ([facility]) Additional Instructions: Follow up with your physician tomorrow for further care or return to the ED IMMEDIATELY if symptoms worsen or new concerns occur. If you cannot afford to follow up with your primary care physician a list of low cost clinics have been provided at the end of your discharge papers as well.
[2017-12-06 12:11] LABS: ABSOLUTE BASOPHILS # (AUTO) 0.1 10^3/uL (0.0-0.2); ABSOLUTE LYMPHOCYTES (AUTO) 1.7 10^3/uL (0.5-4.7); ABSOLUTE MONOCYTES (AUTO) 0.4 10^3/uL (0.1-1.4); ABSOLUTE NEUT (AUTO) 7.6 10^3/uL (1.7-8.2); BASOPHILS % (AUTO) 0.6 % (0-2); EOSINOPHILS % (AUTO) 0.3 % (0-6); HEMATOCRIT 36.9 % (36.0-47.0); HEMOGLOBIN 12.8 g/dL (12.0-15.5); LYMPHOCYTES % (AUTO) 17.5 % (13-45); MEAN CORPUSCULAR HGB CONC 34.6 g/dL (32.0-36.0); MEAN CORPUSCULAR VOLUME 81 fl (80-97); MONOCYTES % (AUTO) 3.9 % (3-13); PLATELET COUNT 279 10^3/uL (150-450); RED BLOOD COUNT 4.57 10^6/uL (3.72-5.28); RED CELL DISTRIBUTION WIDTH 14.3 % (11.5-14.0); SEGMENTED NEUTROPHILS % (AUTO) 77.7 % (42-78); TOTAL CELLS COUNTED % (AUTO) 100 %; WHITE BLOOD COUNT 9.8 10^3/uL (4.0-10.5)
[2017-12-06 12:19] LABS: INTERNATIONAL RATION (INR) 0.96; PROTHROMBIN TIME 13.5 SEC (11.4-15.4)
[2017-12-06 12:41] LABS: ALANINE AMINOTRANSFERASE 34 U/L (9-52); ALBUMIN 4.7 g/dL (3.5-5.0); ALKALINE PHOSPHATASE 128 U/L (38-126); ANION GAP 15 (5-19); ASPARTATE AMINO TRANSFERASE 29 U/L (14-36); BILIRUBIN,DIRECT 0.2 mg/dL (0.0-0.4); BILIRUBIN,TOTAL 0.4 mg/dL (0.2-1.3); BLOOD UREA NITROGEN 10 mg/dL (7-20); CALCIUM 9.7 mg/dL (8.4-10.2); CARBON DIOXIDE 24 mmol/L (22-30); CHLORIDE 102 mmol/L (98-107); GLUCOSE 129 mg/dL (75-110); POTASSIUM 3.5 mmol/L (3.6-5.0); SODIUM 141.4 mmol/L (137-145); TOTAL PROTEIN 8.3 g/dL (6.3-8.2)
[2017-12-06 13:14] VITALS: BP 120/88
== END 2017-12-06 13:11 | disposition home or self-care (01) ==
LOC: ER 10:42
DX: F41.0 Panic disorder [episodic paroxysmal anxiety] (principal); F41.9 Anxiety disorder, unspecified; R20.0 Anesthesia of skin
CPT/HCPCS: 99284; 36415; 85025; 85610; 80053; A9270

== ENCOUNTER 2017-12-18 19:39 | Emergency (ER) | payer MEDICARE, MEDICAID ==
--- NOTE | 2017-12-18 22:40 | ER Document Report ---
ED Respiratory Problem - General Mode of Arrival: Ambulatory Information source: Patient TRAVEL OUTSIDE OF THE [place] IN LAST 30 DAYS: No - General Chief Complaint: Hifg anxiety, tingling, breathing difficulty Stated Complaint: DIFFICULTY BREATHING, POSSIBLE ANXIETY Time Seen by Provider: 12/18/17 22:25 Notes: Patient is a 32-year-old female that presents to the emergency department today with complaints of an anxiety attack prior to arrival. Patient states that she was breathing very fast during this attack and she noticed white patches on her lower extremities with associated tingling. Patient states she tried Tylenol for her panic attack which did not help. Patient states she is not on any anxiety medications. Patient mentions that she has an appointment with her PCP tomorrow. (SAMANTHA HUGO) - Related Data Allergies/Adverse Reactions: morphine [Morphine] Allergy (Severe, Verified 12/06/17 10:43) Itching Sulfa (Sulfonamide Antibiotics) Allergy (Severe, Verified 12/06/17 10:43) Rash, Difficulty breathing Past Medical History - General Information source: Patient, [facility] Records - Social History Smoking Status: Never Smoker Cigarette use (# per day): No Frequency of alcohol use: None Drug Abuse: None Lives with: Family Family History: Reviewed & Not Pertinent Patient has suicidal ideation: No Patient has homicidal ideation: No Neurological Medical History: Reports: Hx Migraine Renal/ Medical History: Reports: Hx Kidney Stones - known stones bilaterally GI Medical History: Reports: Hx Gastroesophageal Reflux Disease, Hx Ulcer Psychiatric Medical History: Reports: Hx Anxiety, Hx Depression Past Surgical History: Reports: Hx Abdominal Surgery - Intestinal, Hx Section - X 3, Hx Cholecystectomy, Hx Genitourinary Surgery - Ureteral stent March 01, 2015, [place]., Hx Hysterectomy - Immunizations Immunizations up to date: Yes Hx Diphtheria, Pertussis, Tetanus Vaccination: No Review of Systems - Review of Systems Constitutional: No symptoms reported EENT: No symptoms reported Cardiovascular: No symptoms reported Respiratory: No symptoms reported Gastrointestinal: No symptoms reported Genitourinary: No symptoms reported Female Genitourinary: No symptoms reported Musculoskeletal: No symptoms reported Skin: See HPI, Rash - prior to arrival Hematologic/Lymphatic: No symptoms reported Neurological/Psychological: See HPI, Anxiety -: Yes All other systems reviewed and negative Physical Exam - Vital signs Vitals: Temp Pulse Resp BP Pulse Ox 97.7 F 105 H 18 123/90 H 96 02/21/18 20:20 12/18/17 20:20 12/18/17 20:20 12/18/17 20:20 12/18/17 20:20 - Notes Notes: Physical Exam: General: Alert, appears well. HEENT: Normocephalic. Atraumatic. PERRL. Extraocular movements intact. Hard of hearing at baseline. Oropharynx clear. Neck: Supple. Non-tender. Respiratory: No respiratory distress. Clear and equal breath sounds bilaterally. Cardiovascular: Regular rate and rhythm. Abdominal: Normal Inspection. Non-tender. No distension. Normal Bowel Sounds. Back: Non-tender. No deformity or step off. Extremities: Moves all four extremities. Upper extremities: Normal inspection. Normal ROM. Lower extremities: Normal inspection. No edema. Normal ROM. Neurological: Normal cognition. AAOx4. Normal speech. Psychological: Normal affect. Normal Mood. Skin: Warm. Dry. Normal color. No rash. No evidence of vasculitis. (SAMANTHA HUGO) Course - Re-evaluation Re-evalutation: 12/19/17 Patient appears well with no difficulty breathing or rash. Patient states that she was anxious earlier. She is seeing a doctor later this afternoon to have blood work and she is agreeable to not having any blood work now. Feels well. No rash. She will be given a prescription for Vistaril as needed for anxiety. Follow-up with PMD later today. Understands agrees with plan. Stable for discharge. (KAUR CURRY) - Vital Signs Vital signs: Temp Pulse Resp BP Pulse Ox 97.9 F 89 16 130/86 H 100 12/18/17 23:45 12/18/17 23:45 12/18/17 23:45 12/18/17 23:45 12/18/17 23:45 Discharge - Discharge Clinical Impression: Anxiety Condition: Stable Disposition: HOME, SELF-CARE Instructions: Anxiety ([facility]) Additional Instructions: Please follow-up with your doctor tomorrow as scheduled. Prescriptions: Hydroxyzine Pamoate [Vistaril 25 mg Capsule] 25 mg PO BIDP PRN #14 capsule PRN Reason: Scribe Attestation: 12/19/17 05:22 I personally performed the services described in the documentation, reviewed and edited the documentation which was dictated to the scribe in my presence, and it accurately records my words and actions. (KAUR CURRY) Scribe Documentation - Scribe Written by Little:: Little Vazquez, 12/19/2017 0005 acting as scribe for :: [place]
[2017-12-18 23:47] VITALS: BP 130/86
== END 2017-12-18 23:45 | disposition home or self-care (01) ==
LOC: ER 19:39
DX: F41.9 Anxiety disorder, unspecified (principal); Z88.5 Allergy status to narcotic agent; Z88.2 Allergy status to sulfonamides
CPT/HCPCS: 99284

== ENCOUNTER → 2017-12-31 | Outpatient (CLI) | payer MEDICARE, MEDICAID ==
[2017-12-31 15:49] LABS: ABSOLUTE EOSINOPHILS # (AUTO) 0.1 10^3/uL (0.0-0.6); ABSOLUTE LYMPHOCYTES (AUTO) 3.2 10^3/uL (0.5-4.7); ABSOLUTE MONOCYTES (AUTO) 0.5 10^3/uL (0.1-1.4); ABSOLUTE NEUT (AUTO) 4.9 10^3/uL (1.7-8.2); BASOPHILS % (AUTO) 0.4 % (0-2); EOSINOPHILS % (AUTO) 1.1 % (0-6); HEMATOCRIT 38.9 % (36.0-47.0); HEMOGLOBIN 13.5 g/dL (12.0-15.5); LYMPHOCYTES % (AUTO) 36.8 % (13-45); MEAN CORPUSCULAR HEMOGLOBIN 28.1 pg (27.0-33.4); MEAN CORPUSCULAR HGB CONC 34.8 g/dL (32.0-36.0); MEAN CORPUSCULAR VOLUME 81 fl (80-97); MONOCYTES % (AUTO) 5.3 % (3-13); PLATELET COUNT 287 10^3/uL (150-450); RED BLOOD COUNT 4.82 10^6/uL (3.72-5.28); RED CELL DISTRIBUTION WIDTH 14.1 % (11.5-14.0); SEGMENTED NEUTROPHILS % (AUTO) 56.4 % (42-78); TOTAL CELLS COUNTED % (AUTO) 100 %; WHITE BLOOD COUNT 8.7 10^3/uL (4.0-10.5)
[2017-12-31 16:21] LABS: ALANINE AMINOTRANSFERASE 47 U/L (9-52); ALBUMIN 4.7 g/dL (3.5-5.0); ALKALINE PHOSPHATASE 157 U/L (38-126); ANION GAP 13 (5-19); ASPARTATE AMINO TRANSFERASE 38 U/L (14-36); BILIRUBIN,DIRECT 0.7 mg/dL (0.0-0.4); BILIRUBIN,TOTAL 1.1 mg/dL (0.2-1.3); BLOOD UREA NITROGEN 11 mg/dL (7-20); CARBON DIOXIDE 26 mmol/L (22-30); CHLORIDE 104 mmol/L (98-107); GLUCOSE 97 mg/dL (75-110); SODIUM 142.9 mmol/L (137-145); TOTAL PROTEIN 9.1 g/dL (6.3-8.2)
[2017-12-31 16:38] LABS: FREE T4 (FREE THYROXINE) 1.36 ng/dL (0.78-2.19)
[2017-12-31 16:52] LABS: THYROID STIMULATING HORMONE 3.63 uIU/mL (0.47-4.68)
== END ==
LOC: OD 14:20
PROVIDERS: ATTEND Psychiatry & Neurology Psychiatry
DX: F41.1 Generalized anxiety disorder (principal)
CPT/HCPCS: 36415; 80053; 84439; 84443; 85025

== ENCOUNTER 2019-10-20 20:10 | Emergency (ER) | payer MEDICARE, MEDICAID ==
[2019-10-20] MEDS ORDERED: NORMAL SALINE 1000 ML 1,000 ML IV ONE (20:55)
[2019-10-20] MEDS ORDERED: IPRATROPIUM/ALBUTEROL 0.5-2.5 MG/3 ML AMPUL NEB ONE (20:55)
--- NOTE | 2019-10-20 20:56 | ER Document Report ---
ED Medical Screen (RME) - General Chief Complaint: Shortness Of Breath Stated Complaint: SHORTNESS OF BREATH,CHEST PAIN Time Seen by Provider: 10/20/19 20:49 Primary Care Provider: MARIA A BA MD [Primary Care Provider] - Follow up as needed TRAVEL OUTSIDE OF THE [place] IN LAST 30 DAYS: No - HPI Notes: 10/20/19 20:55 34-year-old female to the emergency department with complaints of shortness of breath that has been getting progressively worse for the past 4 days. She states that she has pain with big deep breath and has been coughing quite a bit. She also states that she has had nausea. She reports upper abdominal discomfort but denies any vomiting or diarrhea. She denies any fevers. She did not have a flu shot this season. I performed a brief medical screening exam on the patient determined that she will need further management and evaluation by main side provider. I have placed initial orders to help expediting in her care. - Related Data Allergies/Adverse Reactions: morphine [Morphine] Allergy (Severe, Verified 10/20/19 20:45) Itching Sulfa (Sulfonamide Antibiotics) Allergy (Severe, Verified 10/20/19 20:45) Rash, Difficulty breathing Home Medications: SUBOXONE Past Medical History - Past Medical History Cardiac Medical History: Denies: Hx Coronary Artery Disease, Hx Heart Attack, Hx Hypertension Pulmonary Medical History: Denies: Hx Asthma, Hx Bronchitis, Hx COPD, Hx Pneumonia Neurological Medical History: Reports: Hx Migraine. Denies: Hx Cerebrovascular Accident, Hx Seizures Renal/ Medical History: Reports: Hx Kidney Stones - known stones bilaterally. Denies: Hx Peritoneal Dialysis GI Medical History: Reports: Hx Gastroesophageal Reflux Disease, Hx Ulcer Musculoskeltal Medical History: Denies Hx Arthritis Psychiatric Medical History: Reports: Hx Anxiety, Hx Depression Past Surgical History: Reports: Hx Abdominal Surgery - Intestinal, Hx Section - X 3, Hx Cholecystectomy, Hx Genitourinary Surgery - Ureteral stent March 01, 2015, [place]., Hx Hysterectomy - Immunizations Immunizations up to date: Yes Hx Diphtheria, Pertussis, Tetanus Vaccination: No Physical Exam - Vital signs Vitals: Temp Pulse Resp BP Pulse Ox 97.5 F 114 H 20 140/66 H 100 10/20/19 20:30 10/20/19 20:30 10/20/19 20:30 10/20/19 20:30 10/20/19 20:30 Course - Vital Signs Vital signs: Temp Pulse Resp BP Pulse Ox 97.5 F 114 H 20 140/66 H 100 10/20/19 20:30 10/20/19 20:30 10/20/19 20:30 10/20/19 20:30 10/20/19 20:30 Doctor's Discharge - Discharge Referrals: MARIA A BA MD [Primary Care Provider] - Follow up as needed
[2019-10-20 21:51] LABS: ABSOLUTE BASOPHILS # (AUTO) 0.1 10^3/uL (0.0-0.2); ABSOLUTE EOSINOPHILS # (AUTO) 0.1 10^3/uL (0.0-0.6); ABSOLUTE LYMPHOCYTES (AUTO) 3.1 10^3/uL (0.5-4.7); ABSOLUTE MONOCYTES (AUTO) 0.6 10^3/uL (0.1-1.4); ABSOLUTE NEUT (AUTO) 9.5 10^3/uL (1.7-8.2); BASOPHILS % (AUTO) 0.6 % (0-2); EOSINOPHILS % (AUTO) 0.4 % (0-6); HEMATOCRIT 40.3 % (36.0-47.0); HEMOGLOBIN 13.8 g/dL (12.0-15.5); LYMPHOCYTES % (AUTO) 23.4 % (13-45); MEAN CORPUSCULAR HEMOGLOBIN 27.9 pg (27.0-33.4); MEAN CORPUSCULAR HGB CONC 34.3 g/dL (32.0-36.0); MEAN CORPUSCULAR VOLUME 81 fl (80-97); MONOCYTES % (AUTO) 4.6 % (3-13); PLATELET COUNT 283 10^3/uL (150-450); RED BLOOD COUNT 4.95 10^6/uL (3.72-5.28); RED CELL DISTRIBUTION WIDTH 14.4 % (11.5-14.0); TOTAL CELLS COUNTED % (AUTO) 100 %; WHITE BLOOD COUNT 13.3 10^3/uL (4.0-10.5)
[2019-10-20 22:07] LABS: A TYPE INFLUENZA AG NEGATIVE (NEGATIVE); B INFLUENZA AG NEGATIVE (NEGATIVE)
[2019-10-20 22:15] LABS: ALBUMIN 4.6 g/dL (3.5-5.0); ALKALINE PHOSPHATASE 105 U/L (38-126); ANION GAP 14 (5-19); ASPARTATE AMINO TRANSFERASE 26 U/L (14-36); BILIRUBIN,DIRECT 0.2 mg/dL (0.0-0.4); BILIRUBIN,TOTAL 0.6 mg/dL (0.2-1.3); BLOOD UREA NITROGEN 13 mg/dL (7-20); CALCIUM 9.7 mg/dL (8.4-10.2); CARBON DIOXIDE 26 mmol/L (22-30); CHLORIDE 101 mmol/L (98-107); GLUCOSE 134 mg/dL (75-110); POTASSIUM 3.5 mmol/L (3.6-5.0); TOTAL PROTEIN 8.9 g/dL (6.3-8.2)
--- NOTE | 2019-10-20 22:28 | RADIOLOGY REPORT (SQ) ---
EXAM DESCRIPTION: XR CHEST 2 VIEWS COMPLETED DATE/TME: 10/20/2019 20:54 CLINICAL HISTORY: 34 years, Female, SOB COMPARISON: X-ray chest 01/10/2017 NUMBER OF VIEWS: TECHNIQUE: LIMITATIONS: None. FINDINGS: No evidence of pulmonary infiltrate or pleural effusion. The heart and mediastinum are unremarkable. Pulmonary vascularity appears normal. There is no significant change, as compared with the prior x-ray(s). IMPRESSION: No acute finding. copyright 2010 [employer]- All Rights Reserved
[2019-10-21] MEDS ORDERED: DEXAMETHASONE SOD PHOS INJ 10 MG/1 ML VIAL IM ONE (02:14)
[2019-10-21] MEDS ORDERED: HYDROCODONE/ACETAMINOPHEN 5-325 MG TABLET PO ONE (02:14)
[2019-10-21] MEDS ORDERED: PROMETHAZINE HCL 25 MG TABLET PO ONE (02:15)
--- NOTE | 2019-10-21 02:21 | ER Document Report ---
ED General - General Chief Complaint: Shortness Of Breath Stated Complaint: SHORTNESS OF BREATH,CHEST PAIN Time Seen by Provider: 10/20/19 20:49 Notes: Patient is a 34-year-old female that comes emergency department for chief complaint of 4 days of cough and worsening sharp pain with cough in her chest. She states it hurts to take a deep breath. She also reports some mild congestion and rhinorrhea. She denies nausea vomiting, fever or chills, abdominal pain, flank pain. She denies sore throat. She denies smoking, asthma, COPD. Past medical history of GERD/PUD, cholecystectomy, hysterectomy. TRAVEL OUTSIDE OF THE [place] IN LAST 30 DAYS: No - Related Data Allergies/Adverse Reactions: morphine [Morphine] Allergy (Severe, Verified 10/20/19 20:45) Itching Sulfa (Sulfonamide Antibiotics) Allergy (Severe, Verified 10/20/19 20:45) Rash, Difficulty breathing Home Medications: SUBOXONE Past Medical History - General Information source: Patient - Social History Smoking Status: Never Smoker Frequency of alcohol use: None Drug Abuse: None Lives with: Family Family History: Reviewed & Not Pertinent Patient has suicidal ideation: No Patient has homicidal ideation: No - Past Medical History Cardiac Medical History: Denies: Hx Coronary Artery Disease, Hx Heart Attack, Hx Hypertension Pulmonary Medical History: Denies: Hx Asthma, Hx Bronchitis, Hx COPD, Hx Pneumonia Neurological Medical History: Reports: Hx Migraine. Denies: Hx Cerebrovascular Accident, Hx Seizures Renal/ Medical History: Reports: Hx Kidney Stones - known stones bilaterally. Denies: Hx Peritoneal Dialysis GI Medical History: Reports: Hx Gastroesophageal Reflux Disease, Hx Ulcer Musculoskeletal Medical History: Denies Hx Arthritis Psychiatric Medical History: Reports: Hx Anxiety, Hx Depression Past Surgical History: Reports: Hx Abdominal Surgery - Intestinal, Hx Section - X 3, Hx Cholecystectomy, Hx Genitourinary Surgery - Ureteral stent March 01, 2015, [place]., Hx Hysterectomy - Immunizations Immunizations up to date: Yes Hx Diphtheria, Pertussis, Tetanus Vaccination: No Review of Systems - Review of Systems Constitutional: See HPI EENT: See HPI Cardiovascular: No symptoms reported Respiratory: See HPI Gastrointestinal: No symptoms reported Genitourinary: No symptoms reported Female Genitourinary: No symptoms reported Musculoskeletal: No symptoms reported Skin: No symptoms reported Hematologic/Lymphatic: No symptoms reported Neurological/Psychological: No symptoms reported Physical Exam - Vital signs Vitals: Temp Pulse Resp BP Pulse Ox 97.5 F 114 H 20 140/66 H 100 10/20/19 20:30 10/20/19 20:30 10/20/19 20:30 10/20/19 20:30 10/20/19 20:30 - Notes Notes: GENERAL: Alert, interacts well. No acute distress. HEAD: Normocephalic, atraumatic. EYES: Pupils equal, round, and reactive to light. Extraocular movements intact. ENT: Oral mucosa moist, tongue midline. Oropharynx unremarkable. Airway patent. Mild nasal congestion, no nasal septal hematoma, TM's intact. NECK: Full range of motion. Supple. Trachea midline. LUNGS: Pleuritic chest pain noted. Minimal tenderness with palpation over the chest. Occasional congested cough. No tachypnea or labored breathing. Clear lungs. HEART: Regular rate and rhythm. No murmur ABDOMEN: Soft, non-tender. Non-distended. EXTREMITIES: Moves all 4 extremities spontaneously. No edema, normal radial and dorsalis pedis pulses bilaterally. No cyanosis. BACK: no cervical, thoracic, lumbar midline tenderness. No saddle anesthesia, normal distal neurovascular exam. Moves all extremities in full range of motion. NEUROLOGICAL: Alert and oriented x3. Normal speech. Cranial nerves II through XII grossly intact. PSYCH: Normal affect, normal mood. SKIN: Warm, dry, normal turgor. No rashes or lesions noted. Course - Re-evaluation Re-evalutation: Patient with congestion, occasional cough, clear lungs, some pleuritic chest pain. Chest x-ray negative, EKG unremarkable. CBC shows mild leukocytosis which is nonspecific given her presentation, chemistry shows borderline potassium but otherwise unremarkable, troponin is negative, influenza negative. Overall presentation is most suggestive of pleurisy. Patient is not tachycardic on my evaluation, has no current complaints unless she takes a deep breath. No lower extremity swelling, smoking, reported hormones, recent travel or surgery, history of blood clots. Overall presentation is most consistent with upper respiratory infection and pleurisy. Discussed with patient, treated with dexamethasone, discussed expectations, follow-up, return precautions. Patient states understanding and agreement with plan. - Vital Signs Vital signs: Temp Pulse Resp BP Pulse Ox 98.1 F 97 18 123/97 H 98 10/21/19 03:07 10/21/19 03:07 10/21/19 03:07 10/21/19 03:07 10/21/19 03:07 - Laboratory Result Diagrams: 10/20/19 21:30 10/20/19 21:30 Laboratory results interpreted by me: 10/20/19 10/20/19 21:30 21:30 WBC 13.3 H RDW 14.4 H Absolute Neuts (auto) 9.5 H Potassium 3.5 L Glucose 134 H Total Protein 8.9 H - EKG Interpretation by Me Additional EKG results interpreted by me: EKG shows sinus rhythm at a rate of 86, normal axis. No T wave inversions or ST segment changes in consecutive leads. Discharge - Discharge Clinical Impression: Cough, Pleurisy Chest pain Qualifiers: Chest pain type: unspecified Qualified Code(s): R07.9 - Chest pain, unspecified Condition: Stable Disposition: HOME, SELF-CARE Additional Instructions: Your exam is consistent with pleurisy as the cause of your pain. You have been treated for this, this should go away with time. You can take the anti-inflammatory naproxen to help it go away faster but do this carefully because it can worsen things like peptic ulcers. If you do I recommend you take the famotidine prescribed. Continue to drink plenty fluids and rest. You can take Tylenol for pain additionally. Follow-up with primary care for additional evaluation and management. Come back if you are worse including fever, difficulty breathing, passing out, vomiting, or any other concerning or worsening symptoms. Prescriptions: Naproxen 375 mg PO BID PRN #14 tablet.dr MAGALLANES Reason: Famotidine [Pepcid 20 mg Tablet] 20 mg PO BID #14 tablet
[2019-10-21 03:08] VITALS: BP 123/97
--- NOTE | 2019-10-21 20:13 | EKG REPORT ---
SEVERITY:- OTHERWISE NORMAL ECG - SINUS TACHYCARDIA : Confirmed by: Lakeshia Chen MD 21-Oct-2019 20:11:41
--- NOTE | 2019-10-21 20:13 | EKG REPORT ---
SEVERITY:- NORMAL ECG - SINUS RHYTHM : Confirmed by: Lakeshia Chen MD 21-Oct-2019 20:11:38
== END 2019-10-21 03:08 | disposition home or self-care (01) ==
LOC: ER 20:10
DX: R05 Cough (principal); R09.1 Pleurisy; R07.9 Chest pain, unspecified; R06.02 Shortness of breath; Z88.6 Allergy status to analgesic agent; Z88.2 Allergy status to sulfonamides; Z90.710 Acquired absence of both cervix and uterus; Z90.49 Acquired absence of other specified parts of digestive tract
CPT/HCPCS: 93005 ×2; 94640; 99285; 96372; 36415; 83690; 85025; 80053; 84484; 87804; 71046; 93010 ×2; A9270 ×2; J1100

== ENCOUNTER 2020-09-17 17:18 | Emergency (ER) | payer MEDICARE, MEDICAID ==
[2020-09-17 17:40] VITALS: BP 128/77
--- NOTE | 2020-09-17 19:05 | RADIOLOGY REPORT (SQ) ---
EXAM DESCRIPTION: CHEST 2 VIEWS IMAGES COMPLETED DATE/TIME: 09/17/2020 6:50 pm REASON FOR STUDY: shortness of breath COMPARISON: 10/20/2019 TECHNIQUE: Frontal and lateral radiographic views of the chest acquired. NUMBER OF VIEWS: Two view. LIMITATIONS: None. FINDINGS: LUNGS AND PLEURA: No pneumothorax. No consolidation or pleural effusion. MEDIASTINUM AND HILAR STRUCTURES: Stable. HEART AND VASCULAR STRUCTURES: Stable. BONES: No acute findings. HARDWARE: None in the chest. OTHER: No other significant finding. IMPRESSION: NO ACUTE FINDINGS. TECHNICAL DOCUMENTATION: JOB ID: [id number] [place]-72 2010 [employer]- All Rights Reserved Reading location - IP/workstation name: [employer]
--- NOTE | 2020-09-17 20:13 | ER Document Report ---
HPI - HPI Time Seen by Provider: 09/17/20 18:13 Context: Patient is a 35-year-old female presents emergency department with a chief complaint of left breast pain. Patient states that the pain is underneath her left breast. Denies any fever, body aches, or chills. Patient states that she feels short of breath due to the pain. Denies any purulent drainage. States that she cannot see the area. Patient reports she slightly deaf, but I am able to have normal conversation with her and she is able to understand everything I say. - ROS Systems Reviewed and Negative: Yes All other systems reviewed and negative - CONSTITUTIONAL Constitutional: DENIES: Fever, Chills - EENT EENT: DENIES: Sore Throat, Congestion - NEURO Neurology: DENIES: Headache, Weakness - CARDIOVASCULAR Cardiovascular: DENIES: Chest pain - RESPIRATORY Notes: shortness of breath from pain under breast - REPRODUCTIVE Reproductive: DENIES: : - MUSCULOSKELETAL Musculoskeletal: DENIES: Extremity pain - DERM Skin Color: Normal Skin Problems: None Notes: pain under left breast. Past Medical History - General Information source: Patient - Social History Smoking Status: Unknown if Ever Smoked Family History: Reviewed & Not Pertinent - Past Medical History Cardiac Medical History: Denies: Hx Coronary Artery Disease, Hx Heart Attack, Hx Hypertension Pulmonary Medical History: Denies: Hx Asthma, Hx Bronchitis, Hx COPD, Hx Pneumonia Neurological Medical History: Reports: Hx Migraine. Denies: Hx Cerebrovascular Accident, Hx Seizures Renal/ Medical History: Reports: Hx Kidney Stones - known stones bilaterally. Denies: Hx Peritoneal Dialysis GI Medical History: Reports: Hx Gastroesophageal Reflux Disease, Hx Ulcer Musculoskeletal Medical History: Denies Hx Arthritis Psychiatric Medical History: Reports: Hx Anxiety, Hx Depression Past Surgical History: Reports: Hx Abdominal Surgery - Intestinal, Hx Section - X 3, Hx Cholecystectomy, Hx Genitourinary Surgery - Ureteral stent March 01, 2015, [place]., Hx Hysterectomy - Immunizations Immunizations up to date: Yes Hx Diphtheria, Pertussis, Tetanus Vaccination: No Vertical Provider Document - CONSTITUTIONAL Agree With Documented VS: Yes Exam Limitations: No Limitations General Appearance: No Apparent Distress - INFECTION CONTROL TRAVEL OUTSIDE OF THE [place] IN LAST 30 DAYS: No - HEENT HEENT: Atraumatic, Normocephalic - NECK Neck: Normal Inspection - RESPIRATORY Respiratory: Breath Sounds Normal, No Respiratory Distress - CARDIOVASCULAR Cardiovascular: Regular Rhythm, Tachycardia Pulses: Normal: Radial - MUSCULOSKELETAL/EXTREMETIES Musculoskeletal/Extremeties: FROM - NEURO Level of Consciousness: Awake, Alert, Appropriate Motor/Sensory: No Motor Deficit, No Sensory Deficit - DERM Integumentary: Warm, Dry, Rash - very slight erythema noted under left breast. Course - Re-evaluation Re-evalutation: 09/17/20 20:08 Chest x-ray is negative. Breast exam done with GEORGIANA Dorado at bedside. No masses were appreciated. No evidence of abscess noted. Patient does have some erythema noted to her left inferior breast area. This may be due to friction. Patient does not wear a supportive bra. Advised the patient to follow-up with her primary care provider. Ordered nystatin for patient to place under left breast. Follow-up precautions were given. Verbal discharge instructions were given to the patient. They verbalized understanding. They are stable for discharge. - Vital Signs Vital signs: Temp Pulse Resp BP Pulse Ox 98.1 F 101 H 16 128/77 H 100 09/17/20 17:39 09/17/20 17:39 09/17/20 17:39 09/17/20 17:39 09/17/20 17:39 Discharge - Discharge Clinical Impression: Breast pain, left Condition: Stable Disposition: HOME, SELF-CARE Additional Instructions: You were seen today in the emergency department for left breast pain. It appears that you have some irritation under your left breast. Apply the nystatin powder twice a day. Follow-up with your primary care provider on Saturday. Prescriptions: Nystatin [Mycostatin Topical Powder 15 gm] 1 applic TP BID #1 bottle Referrals: ZAY DICKENS MD [Primary Care Provider] - 09/19/20
== END 2020-09-17 20:40 | disposition home or self-care (01) ==
LOC: ER 17:18
DX: N64.4 Mastodynia (principal); R06.02 Shortness of breath; L53.9 Erythematous condition, unspecified
CPT/HCPCS: 71046; 99283